=== PATIENT | male | born 1985 | race Caucasian/White ===

== ENCOUNTER 2025-04-24 14:59 | Emergency (ER) | payer MEDICAID, SELFPAY ==
[2025-04-24] VITALS (45 sets, daily range): BP systolic 87–143; BP diastolic 33–69; PULSE 93–125; RESP 9–27; TEMP 36.6–37.1; O2SAT 73–98
--- NOTE | 2025-04-24 15:15 | RT.EKG_ITS ---
APPROVED REPORT Exam: Resting ECG Reason for Exam: sob Patient Location: E HR:114 bpm ECG Measurements Heart Rate 114 AXIS MT 145 P 53 QRSd 92 QRS 64 QT 367 T 41 QTc 507 Conclusion Sinus tachycardia...rate> 99 Prolonged QT interval...QTc >500mS No STEMI
--- NOTE | 2025-04-24 15:30 | DI.CT_ITS ---
Exam(s) CT CHEST PE CTA EXAM: CT CHEST PE CTA CLINICAL HISTORY: dyspnea, tachycardia, hypoxia. TECHNIQUE: Imaging Protocol: CT angiography of the chest was performed using pulmonary embolus protocol. Multi planar reconstructions were performed. CONTRAST MATERIAL: Intravenous: Omnipaque 350 Contrast volume: 100 cc COMPARISON: No exams were available for comparison FINDINGS: CHEST: PULMONARY ARTERIES: Significantly less than optimal opacification of the noncentral pulmonary arteries. However, there is a suggestion of intraluminal filling defects in the left lower lobe pulmonary arteries and possibly also involving left upper lobe. His. LUNGS: There are no infiltrates nor evidence of pulmonary infarction.. No ominous pulmonary nodules. No pleural effusions. No significant focal findings in the trachea and mainstem bronchi. MEDIASTINUM: There is no hilar nor mediastinal adenopathy. CARDIAC: Heart size is upper normal. There is no pericardial effusion.Caliber of the thoracic aorta is within normal limits. No evidence of aortic dissection. Ventricular ratio is approximately 1:1 PARTIALLY VISUALIZED UPPERMOST ABDOMEN: There is a large amount of ascites. Hepatic steatosis noted. Multiple gallstones. Splenomegaly. No adrenal masses. OSSEOUS: No significant osseous lesions.Slight loss of height of superior endplate of the T6 and Schmorl's node invagination at this level. Probably not acute similar findings also seen at superior endplate of the partially included T12 vertebral body.. OTHER: Prominent bilateral gynecomastia noted. IMPRESSION: 1. Suboptimal opacification of the pulmonary arteries.However, there is subtle suggestion of intraluminal filling defects in left lower left upper lobe pulmonary arteries which is concerning for pulmonary emboli. Correlation with clinical setting recommended. 2. No evidence of infiltrates, pulmonary infarction, intrathoracic adenopathy nor pleural effusions. 3. No evidence of aortic dissection nor pericardial effusion. 4. There is a large amount of ascites in the abdomen incidentally noted as well as severe hepatic steatosis and splenomegaly. There also multiple gallstones noted in the gallbladder lumen. Report called by myself to ER physician 04/24/2025 at 6:50 p.m. RADIATION DOSE DELIVERED: 248.51mGy.cm Total DLP DATA REPOSITORY: All CT scans at this facility are submitted to the National Radiology Data Registry (NRDR) Dose Index Registry (DIR) with the [employer] (A[employer]). RADIATION OPTIMIZATION: All CT scans at this facility use at least one of these dose optimization techniques: automated exposure control; mA and/or kV adjustment per patient size (includes targeted exams where dose is matched to clinical indication); or iterative reconstruction.
--- NOTE | 2025-04-24 15:50 | DI.RAD_ITS ---
Exam(s) XR PORTABLE CHEST AP EXAM: XR PORTABLE CHEST AP CLINICAL HISTORY: SOB. TECHNIQUE: 2D digital imaging was performed. COMPARISON: No exams were available for comparison FINDINGS: Single AP portable view. Heart size is upper normal. The mediastinum is not widened. Lungs are clear. No infiltrates nor obvious pleural effusions. IMPRESSION: No acute pulmonary findings on this single AP portable view of the chest. DATA REPOSITORY: RADIATION DOSE DELIVERED:
[2025-04-24 16:13] LABS: BE (Venous) 7 mmol/L (-2-3); HCO3 (Venous) 30 mmol/L (23-28); O2 Sat (Venous) 81 %; TCO2 (Venous) 29 mmol/L (24-29); pCO2 (Venous) 39 mmHg (41-51); pO2 (Venous) 47 mmHg
[2025-04-24 16:17] LABS: Abs Immature Grans 0.01 10^3/uL (0.0-0.06); HCT 21.3 % (40.0-50.0); Immature Grans % 0.2 %; MCH 28.6 pg (27.0-33.0); MCHC 31.0 % (32.0-36.0); MCV 92 fL (80-95); MPV 12.0 fL (8.0-11.0); RBC 2.31 10^6/uL (4.36-5.78); RDW 18.6 % (11.8-14.1); RDW-SD 62.4 fL; WBC 4.67 10^3/uL (4.4-10.8)
[2025-04-24 16:31] LABS: Lipase 18 U/L (<53); Magnesium 1.5 mg/dL (1.6-2.6)
[2025-04-24 16:38] LABS: HGB 6.6 g/dL (13.5-17.5); Hypochromasia 2+; Platelet Count 75 10^3/uL (130-400)
[2025-04-24] MEDS: Furosemide 40 MG/4 ML VIAL IVP (16:38)
[2025-04-24] MEDS: Lactated Ringers 1,000 ML 1000 ML IV (16:39)
[2025-04-24 16:42] LABS: ALT 38 U/L (10-49); AST 56 U/L (<34); Albumin 1.7 g/dL (3.4-5.0); Alkaline Phosphatase 158 U/L (46-116); Anion Gap 7.8 mmol/L (3-11); BUN 7 mg/dL (9-23); Bilirubin, Total 10.20 mg/dL (0.2-1.2); CO2 27.3 mmol/L (20.0-31.0); Calcium 7.3 mg/dL (8.3-10.6); Chloride 93 mmol/L (98-107); Glucose 240 mg/dL (74-106); Potassium 3.7 mmol/L (3.5-5.1); Sodium 128 mmol/L (136-145); Total Protein 5.8 g/dL (5.7-8.2); Troponin I < 3 ng/L (<54)
[2025-04-24] MEDS: Normal Saline - Diluent 50 ML VIAL IJ (16:58)
[2025-04-24] MEDS: Normal Saline Flush 10 ML SYR IVP (16:58)
[2025-04-24] MEDS: Omnipaque 350 MG/ML 100 ML BTL IJ (16:59)
[2025-04-24 17:22] LABS: Glucose 100 mg/dL (Negative)
[2025-04-24 17:28] LABS: C & S Indicated? No
[2025-04-24 17:43] LABS: Troponin I < 3 ng/L (<54)
[2025-04-24 17:55] LABS: PTT Activated 53.2 sec (20.6-30.2)
[2025-04-24 18:00] LABS: INR > 9.8 (0.9-1.1)
[2025-04-24] MEDS: LORazepam 20 MG/10 ML VIAL IVP (18:07)
[2025-04-24] MEDS: Ondansetron 4 MG/2 ML VIAL IVP (18:07)
--- NOTE | 2025-04-24 18:24 | W.ED.GENAD ---
Discharge Plan Disposition Patient Disposition: Transfer-Acute Inpatient Care Specific Acute Inpt Facility: [facility] Discharge Details Clinical Impression: GI (gastrointestinal bleed), Decompensated cirrhosis, Alcohol withdrawal ED Provider: Mane Stafford Home Meds and New Rx's Prescriptions: No Action acamprosate 333 mg tablet,delayed release (DR/EC) 333 mg PO BID Rx Instructions: administer with mid-day and evening meals buprenorphine-naloxone 8-2 mg film 1 film sublingual DAILY folic acid 1 mg tablet 1 mg PO DAILY furosemide [Lasix] 20 mg tablet 20 mg PO DAILY magnesium oxide 400 mg magnesium capsule 400 mg PO DAILY pregabalin [Lyrica] 150 mg capsule 150 mg PO DAILY spironolactone [Aldactone] 100 mg tablet 100 mg PO DAILY venlafaxine 75 mg capsule,extended release 24hr 75 mg PO DAILY Discharge Instructions Instructions: Cirrhosis, Acute Liver Failure (DC), Alcohol Use Disorder ED HPI General Date/Time Provider Initiated Documentation: 04/24/25 15:09. HPI Narrative: MDM/Narrative: 40-year-old male with history of decompensated cirrhosis, presents for evaluation of dyspnea. Vital signs notable for tachycardia, hypoxia. Physical exam shows jaundice without significantly tense ascites, and mild alcohol withdrawal. Concern for possible acute on chronic liver failure. Will obtain screening labs including CBC, CMP, coags, EKG Trope. Will consider CTA of the chest to rule out pulmonary emboli if no other will significant findings. ED course: Patient is having active melena here in the department. INR is over 9.8. Hemoglobin of 6.6 will start blood products, and given patient's history on chart review portal hypertension and likely varices will start octreotide, Protonix and ceftriaxone. Patient will require higher level of care including gastroenterology/hepatology. [facility] transfer center paged. Case discussed with Dr. Jacinto of the ICU who recommends starting FFP, and is in agreement with transfer to [facility]. Given current census recommending ER to ER transfer. Case discussed with Dr. Cotter of the emergency department and is in agreement with plan for transfer to his care. Clinical impression: Acute on chronic cirrhosis Acute alcohol withdrawal Acute anemia GI bleed Disposition: Transferred to [facility] HPI: 40-year-old male presents for evaluation of difficulty breathing. Patient states that he is a [facility] liver patient and they moved in the area last week. Notes recurrent ascites for which he takes Lasix. Notes for the past week he has been having worsening difficulty breathing. Also notes some diarrhea with black stools today. Denies any active chest pain, fever, chills or any other new or concerning symptoms. ROS: Negative besides as mentioned above Exam: Gen: A&O NAD HEENT: NCAT, EOMI, icteric. External ears normal. No rhinorrhea. Moist mucous membranes. Neck: Supple, full range of motion, no observable masses, No meningeal sign. Lungs: No Respiratory distress. CV: RRR, no edema. Abdomen: Caput medusa, distended nontender not significantly tense. MSK: No joint swelling, no redness. Skin: No rashes, petechiae, lesions. Jaundice. Neuro: Normal Gait, Grossly intact. Psych: Appropriate for situation. Rhythm: NSR Rate: [] [place]: Normal axis Intervals: Normal intervals Other findings: No acute ST segment or T wave changes to suggest acute ischemia. Labs: Laboratory Tests Range/Units 04/24/25 04/24/25 04/24/25 16:05 17:00 17:05 WBC (4.4-10.8) 10^3/uL 4.67 RBC (4.36-5.78) 10^6/uL 2.31 L Hgb (13.5-17.5) g/dL 6.6 L* Hct (40.0-50.0) % 21.3 L MCV (80-95) fL 92 MCH (27.0-33.0) pg 28.6 MCHC (32.0-36.0) % 31.0 L RDW (11.8-14.1) % 18.6 H Plt Count (130-400) 10^3/uL 75 L MPV (8.0-11.0) fL 12.0 H Immature Gran % % 0.2 Neutrophils % % 59.1 Lymphocytes % % 14.8 Monocytes % % 25.3 Eosinophils % % 0.2 Basophils % % 0.4 Nucleated RBC % (0.0-0.3) % 0.0 Absolute Neutrophils (1.2-6.7) 10^3/uL 2.76 Absolute Lymphocytes (1.2-3.4) 10^3/uL 0.69 L Absolute Monocytes (0.1-0.8) 10^3/uL 1.18 H Absolute Eosinophils (0.0-0.7) 10^3/uL 0.01 Absolute Basophils (0.0-0.2) 10^3/uL 0.02 RBC Morphology See Below Hypochromasia 2+ PT Cancelled > 83.4 H INR Cancelled > 9.8 H* APTT Cancelled 53.2 H VBG pH (7.31-7.41) 7.51 H VBG pCO2 (41-51) mmHg 39 L VBG pO2 mmHg 47 VBG HCO3 (23-28) mmol/L 30 H VBG Total CO2 (24-29) mmol/L 29 VBG O2 Saturation % 81 VBG Base Excess (-2-3) mmol/L 7 H VBG Lactate (<or=2.0) mmol/L 4.8 H* Sodium (136-145) mmol/L 128 L Potassium (3.5-5.1) mmol/L 3.7 Chloride (98-107) mmol/L 93 L Carbon Dioxide (20.0-31.0) mmol/L 27.3 Anion Gap (3-11) mmol/L 7.8 BUN (9-23) mg/dL 7 L Creatinine (0.73-1.18) mg/dL 0.5 L Est GFR (CKD-EPI 2020) (mL/min/1.73m2) 202.67 Glucose (74-106) mg/dL 240 H Calcium (8.3-10.6) mg/dL 7.3 L Magnesium (1.6-2.6) mg/dL 1.5 L Total Bilirubin (0.2-1.2) mg/dL 10.20 H AST (<34) U/L 56 H ALT (10-49) U/L 38 Alkaline Phosphatase (46-116) U/L 158 H Troponin I (<54) ng/L < 3 < 3 NT-Pro-B Natriuret Pep (<300) pg/mL < 35 Total Protein (5.7-8.2) g/dL 5.8 Albumin (3.4-5.0) g/dL 1.7 L Lipase (<53) U/L 18 Urine Color (Yellow) Urine Clarity (Clear) Urine pH (5-8) Ur Specific [place] (1.005-1.025) Urine Protein (Neg-Trace) mg/dL Urine Ketones (Negative) mg/dL Urine Blood (Negative) Urine Nitrite (Negative) Urine Bilirubin (Negative) Urine Urobilinogen (Up to 0.2) mg/dL Ur Leukocyte Esterase (Negative) Urine RBC (0-2) HPF Urine WBC (0-5) HPF Ur Epithelial Cells (Negative) HPF Urine Crystals (Negative) HPF Urine Bacteria (Negative) HPF Urine Casts (Negative) LPF Urine Mucus (Negative) Ur Culture Indicated? Urine Glucose (Negative) mg/dL Ethyl Alcohol (<3) mg/dL 19.7 H ABO/Rh A Positive Blood Type Recheck A Positive Antibody Screen NEGATIVE Range/Units 04/24/25 17:11 WBC (4.4-10.8) 10^3/uL RBC (4.36-5.78) 10^6/uL Hgb (13.5-17.5) g/dL Hct (40.0-50.0) % MCV (80-95) fL MCH (27.0-33.0) pg MCHC (32.0-36.0) % RDW (11.8-14.1) % Plt Count (130-400) 10^3/uL MPV (8.0-11.0) fL Immature Gran % % Neutrophils % % Lymphocytes % % Monocytes % % Eosinophils % % Basophils % % Nucleated RBC % (0.0-0.3) % Absolute Neutrophils (1.2-6.7) 10^3/uL Absolute Lymphocytes (1.2-3.4) 10^3/uL Absolute Monocytes (0.1-0.8) 10^3/uL Absolute Eosinophils (0.0-0.7) 10^3/uL Absolute Basophils (0.0-0.2) 10^3/uL RBC Morphology Hypochromasia PT INR APTT VBG pH (7.31-7.41) VBG pCO2 (41-51) mmHg VBG pO2 mmHg VBG HCO3 (23-28) mmol/L VBG Total CO2 (24-29) mmol/L VBG O2 Saturation % VBG Base Excess (-2-3) mmol/L VBG Lactate (<or=2.0) mmol/L Sodium (136-145) mmol/L Potassium (3.5-5.1) mmol/L Chloride (98-107) mmol/L Carbon Dioxide (20.0-31.0) mmol/L Anion Gap (3-11) mmol/L BUN (9-23) mg/dL Creatinine (0.73-1.18) mg/dL Est GFR (CKD-EPI 2020) (mL/min/1.73m2) Glucose (74-106) mg/dL Calcium (8.3-10.6) mg/dL Magnesium (1.6-2.6) mg/dL Total Bilirubin (0.2-1.2) mg/dL AST (<34) U/L ALT (10-49) U/L Alkaline Phosphatase (46-116) U/L Troponin I (<54) ng/L NT-Pro-B Natriuret Pep (<300) pg/mL Total Protein (5.7-8.2) g/dL Albumin (3.4-5.0) g/dL Lipase (<53) U/L Urine Color (Yellow) Dark Yellow Urine Clarity (Clear) Clear Urine pH (5-8) 5.5 Ur Specific [place] (1.005-1.025) >= 1.030 H Urine Protein (Neg-Trace) mg/dL 30 H Urine Ketones (Negative) mg/dL 15 H Urine Blood (Negative) Negative Urine Nitrite (Negative) Negative Urine Bilirubin (Negative) Large H Urine Urobilinogen (Up to 0.2) mg/dL 1.0 H Ur Leukocyte Esterase (Negative) Negative Urine RBC (0-2) HPF 3-5 H Urine WBC (0-5) HPF 3-5 Ur Epithelial Cells (Negative) HPF Many Urine Crystals (Negative) HPF Negative Urine Bacteria (Negative) HPF Many Urine Casts (Negative) LPF Negative Urine Mucus (Negative) Heavy Ur Culture Indicated? No Urine Glucose (Negative) mg/dL 100 H Ethyl Alcohol (<3) mg/dL ABO/Rh Blood Type Recheck Antibody Screen Radiology: Exam(s) XR PORTABLE CHEST AP EXAM: XR PORTABLE CHEST AP CLINICAL HISTORY: SOB. TECHNIQUE: 2D digital imaging was performed. COMPARISON: No exams were available for comparison FINDINGS: Single AP portable view. Heart size is upper normal. The mediastinum is not widened. Lungs are clear. No infiltrates nor obvious pleural effusions. IMPRESSION: No acute pulmonary findings on this single AP portable view of the chest. Related Data Home Medications Medication Instructions Recorded Confirmed acamprosate 333 mg tablet,delayed 333 mg PO BID 04/24/25 04/24/25 release buprenorphine 8 mg-naloxone 2 mg 1 film sublingual DAILY 04/24/25 04/24/25 sublingual film folic acid 1 mg tablet 1 mg PO DAILY 04/24/25 04/24/25 furosemide 20 mg tablet (Lasix) 20 mg PO DAILY 04/24/25 04/24/25 magnesium oxide 400 mg PO DAILY 04/24/25 04/24/25 pregabalin 150 mg capsule (Lyrica) 150 mg PO DAILY 04/24/25 04/24/25 spironolactone 100 mg tablet 100 mg PO DAILY 04/24/25 04/24/25 (Aldactone) venlafaxine 75 mg capsule,extended 75 mg PO DAILY 04/24/25 04/24/25 release 24 hr Allergies Allergy/AdvReac Type Severity Reaction Status Date / Time morphine AdvReac Unknown Verified 04/24/25 15:15 General Stated Complaint: Abd Prob [place]: 3 Course Vital Signs Vital signs: Vital Signs Temperature 36.6 C 04/24/25 15:08 Pulse 125 H 04/24/25 15:08 Respiratory Rate 20 04/24/25 15:08 Blood Pressure 108/69 04/24/25 15:08 Pulse Oximetry 91 L 04/24/25 15:08 Temperature 36.6 C 04/24/25 15:23 Temperature Source Tympanic 04/24/25 15:23 Pulse 115 H 04/24/25 17:45 Pulse 114 H 04/24/25 17:45 Respiratory Rate 16 04/24/25 17:45 Respiratory Pattern Normal 04/24/25 18:03 Blood Pressure 125/51 L 04/24/25 17:45 Blood Pressure Mean 72 04/24/25 17:45 Pulse Oximetry 97 04/24/25 17:45 Oxygen Delivery Method Room Air 04/24/25 15:23 Pain Level 6 04/24/25 15:23 Lab/Test Results Lab/Test Results: Laboratory Tests Range/Units 04/24/25 04/24/25 04/24/25 16:05 17:00 17:05 WBC (4.4-10.8) 10^3/uL 4.67 RBC (4.36-5.78) 10^6/uL 2.31 L Hgb (13.5-17.5) g/dL 6.6 L* Hct (40.0-50.0) % 21.3 L MCV (80-95) fL 92 MCH (27.0-33.0) pg 28.6 MCHC (32.0-36.0) % 31.0 L RDW (11.8-14.1) % 18.6 H Plt Count (130-400) 10^3/uL 75 L MPV (8.0-11.0) fL 12.0 H Immature Gran % % 0.2 Neutrophils % % 59.1 Lymphocytes % % 14.8 Monocytes % % 25.3 Eosinophils % % 0.2 Basophils % % 0.4 Nucleated RBC % (0.0-0.3) % 0.0 Absolute Neutrophils (1.2-6.7) 10^3/uL 2.76 Absolute Lymphocytes (1.2-3.4) 10^3/uL 0.69 L Absolute Monocytes (0.1-0.8) 10^3/uL 1.18 H Absolute Eosinophils (0.0-0.7) 10^3/uL 0.01 Absolute Basophils (0.0-0.2) 10^3/uL 0.02 RBC Morphology See Below Hypochromasia 2+ PT Cancelled > 83.4 H INR Cancelled > 9.8 H* APTT Cancelled 53.2 H VBG pH (7.31-7.41) 7.51 H VBG pCO2 (41-51) mmHg 39 L VBG pO2 mmHg 47 VBG HCO3 (23-28) mmol/L 30 H VBG Total CO2 (24-29) mmol/L 29 VBG O2 Saturation % 81 VBG Base Excess (-2-3) mmol/L 7 H VBG Lactate (<or=2.0) mmol/L 4.8 H* Sodium (136-145) mmol/L 128 L Potassium (3.5-5.1) mmol/L 3.7 Chloride (98-107) mmol/L 93 L Carbon Dioxide (20.0-31.0) mmol/L 27.3 Anion Gap (3-11) mmol/L 7.8 BUN (9-23) mg/dL 7 L Creatinine (0.73-1.18) mg/dL 0.5 L Est GFR (CKD-EPI 2020) (mL/min/1.73m2) 202.67 Glucose (74-106) mg/dL 240 H Calcium (8.3-10.6) mg/dL 7.3 L Magnesium (1.6-2.6) mg/dL 1.5 L Total Bilirubin (0.2-1.2) mg/dL 10.20 H AST (<34) U/L 56 H ALT (10-49) U/L 38 Alkaline Phosphatase (46-116) U/L 158 H Troponin I (<54) ng/L < 3 < 3 NT-Pro-B Natriuret Pep (<300) pg/mL < 35 Total Protein (5.7-8.2) g/dL 5.8 Albumin (3.4-5.0) g/dL 1.7 L Lipase (<53) U/L 18 Urine Color (Yellow) Urine Clarity (Clear) Urine pH (5-8) Ur Specific [place] (1.005-1.025) Urine Protein (Neg-Trace) mg/dL Urine Ketones (Negative) mg/dL Urine Blood (Negative) Urine Nitrite (Negative) Urine Bilirubin (Negative) Urine Urobilinogen (Up to 0.2) mg/dL Ur Leukocyte Esterase (Negative) Urine RBC (0-2) HPF Urine WBC (0-5) HPF Ur Epithelial Cells (Negative) HPF Urine Crystals (Negative) HPF Urine Bacteria (Negative) HPF Urine Casts (Negative) LPF Urine Mucus (Negative) Ur Culture Indicated? Urine Glucose (Negative) mg/dL Ethyl Alcohol (<3) mg/dL 19.7 H ABO/Rh A Positive Blood Type Recheck A Positive Antibody Screen NEGATIVE Range/Units 04/24/25 17:11 WBC (4.4-10.8) 10^3/uL RBC (4.36-5.78) 10^6/uL Hgb (13.5-17.5) g/dL Hct (40.0-50.0) % MCV (80-95) fL MCH (27.0-33.0) pg MCHC (32.0-36.0) % RDW (11.8-14.1) % Plt Count (130-400) 10^3/uL MPV (8.0-11.0) fL Immature Gran % % Neutrophils % % Lymphocytes % % Monocytes % % Eosinophils % % Basophils % % Nucleated RBC % (0.0-0.3) % Absolute Neutrophils (1.2-6.7) 10^3/uL Absolute Lymphocytes (1.2-3.4) 10^3/uL Absolute Monocytes (0.1-0.8) 10^3/uL Absolute Eosinophils (0.0-0.7) 10^3/uL Absolute Basophils (0.0-0.2) 10^3/uL RBC Morphology Hypochromasia PT INR APTT VBG pH (7.31-7.41) VBG pCO2 (41-51) mmHg VBG pO2 mmHg VBG HCO3 (23-28) mmol/L VBG Total CO2 (24-29) mmol/L VBG O2 Saturation % VBG Base Excess (-2-3) mmol/L VBG Lactate (<or=2.0) mmol/L Sodium (136-145) mmol/L Potassium (3.5-5.1) mmol/L Chloride (98-107) mmol/L Carbon Dioxide (20.0-31.0) mmol/L Anion Gap (3-11) mmol/L BUN (9-23) mg/dL Creatinine (0.73-1.18) mg/dL Est GFR (CKD-EPI 2020) (mL/min/1.73m2) Glucose (74-106) mg/dL Calcium (8.3-10.6) mg/dL Magnesium (1.6-2.6) mg/dL Total Bilirubin (0.2-1.2) mg/dL AST (<34) U/L ALT (10-49) U/L Alkaline Phosphatase (46-116) U/L Troponin I (<54) ng/L NT-Pro-B Natriuret Pep (<300) pg/mL Total Protein (5.7-8.2) g/dL Albumin (3.4-5.0) g/dL Lipase (<53) U/L Urine Color (Yellow) Dark Yellow Urine Clarity (Clear) Clear Urine pH (5-8) 5.5 Ur Specific [place] (1.005-1.025) >= 1.030 H Urine Protein (Neg-Trace) mg/dL 30 H Urine Ketones (Negative) mg/dL 15 H Urine Blood (Negative) Negative Urine Nitrite (Negative) Negative Urine Bilirubin (Negative) Large H Urine Urobilinogen (Up to 0.2) mg/dL 1.0 H Ur Leukocyte Esterase (Negative) Negative Urine RBC (0-2) HPF 3-5 H Urine WBC (0-5) HPF 3-5 Ur Epithelial Cells (Negative) HPF Many Urine Crystals (Negative) HPF Negative Urine Bacteria (Negative) HPF Many Urine Casts (Negative) LPF Negative Urine Mucus (Negative) Heavy Ur Culture Indicated? No Urine Glucose (Negative) mg/dL 100 H Ethyl Alcohol (<3) mg/dL ABO/Rh Blood Type Recheck Antibody Screen Critical Care Time Critical Care Time Attestation: Upon my evaluation, this patient had a high probability of imminent or life-threatening deterioration due to GI bleed, decompensated cirrhosis, acute alcohol withdrawal, which required my direct attention, intervention, and personal management. I have personally provided 45 minutes of critical care time exclusive of time spent on separately billable procedures. Time includes review of laboratory data, radiology results, discussion with consultants, and monitoring for potential decompensation. Interventions were performed as documented above, including monitoring of critical vital signs, ordering critical medications from bedside, and re-assessing effectiveness, repeating critical exam findings, and reviewing patients' chart. PFSH All Active Problems (Updated 04/24/25 @ 18:34 by Mane Stafford MD) Alcohol withdrawal (Acute) Decompensated cirrhosis (Acute) GI (gastrointestinal bleed) (Chronic) Social History Smoking/Tobacco Use Status: Current every day Tobacco Type: e-cigarettes Smoking risk assessment performed?: Yes Alcohol Intake: current Alcohol Intake frequency: 0-2 drinks per day Drug use: Current Sobriety Substance use type: marijuana Housing: house Do you feel safe at home: Yes Do you feel safe in your relationship?: Yes POCUS Exam (ED) Limited Cardiac Exam DATE OF EXAM: 04/24/25 TIME OF EXAM: 15:19 PROVIDER THAT PERFORMED THE STUDY: Mane Stafford IS THIS A REPEAT EXAM DURING THIS ENCOUNTER: no REASON FOR EXAM: Dyspnea VISUALIZED STRUCTURES: Four Chambers, Left atrium, Left ventricle, LVOT, Right atrium, Right ventricle, Aortic valve, Mitral valve and Interventricular septum VIEW OBTAINED: Apical 4-Chamber, Parasternal long-axis, Parasternal short-axis and Subxiphoid PERTINENT FINDINGS/IMPRESSION: Other (B-lines on left lung field); No LV dysfunction, No pericardial effusion and No RV dysfunction Exam complete
[2025-04-24] MEDS: cefTRIAXone 1 GM/50 ML BAG IVPB (18:46)
[2025-04-24] MEDS: Pantoprazole 40 MG VIAL 80 MG IVP (18:47)
[2025-04-24] MEDS: Octreotide 100 MCG/ML VIAL 50 MCG IVP (18:47)
[2025-04-24] MEDS: PHYTONADIONE 10 MG in Normal Saline 50 ML 200 MG IVPB (19:42)
[2025-04-24] MEDS: Norepinephrine in D5W 8 MG/250 ML BAG 9.4 MG IV (20:04)
--- NOTE | 2025-04-24 20:49 | NUR.NOTE ---
Attempted calling [facility] ED at this time without success. Phone rang without answering
== END 2025-04-24 20:50 | disposition short-term general hospital (02) ==
PROVIDERS: Emergency Provider General Practice; PCP Physician Assistant
DX: K92.2 Gastrointestinal hemorrhage, unspecified (principal); K72.90 Hepatic failure, unspecified without coma; K74.69 Other cirrhosis of liver; F10.939 Alcohol use, unspecified with withdrawal, unspecified
CPT/HCPCS: 36415; 71275; 80053; 82805; 83690; 86850; 86900; 86901; 86920; 93005; 93308; 96365; 96366; 96367; 96375; 99291; 71045; 80320; 81003; 81015; 83605; 83735; 83880; 84484; 85025; 85610; 85730; 93010; J0696; J1938; J2060; J2354; J2405; J2470; J3430; J3490; P9016; P9059

== ENCOUNTER 2025-05-06 01:14 | Inpatient (IN) | payer MEDICAID, SELFPAY ==
[2025-05-05 23:31] VITALS: PULSE 100; O2SAT 98
[2025-05-05 23:43] VITALS: BP 107/64; PULSE 95; RESP 21; O2SAT 99
[2025-05-05 23:46] VITALS: BP 119/64; PULSE 95; PULSE 96; RESP 17; O2SAT 100
[2025-05-06] VITALS (36 sets, daily range): BP systolic 93–124; BP diastolic 49–70; PULSE 73–103; RESP 9–23; TEMP 36.6–37; O2SAT 92–99
--- NOTE | 2025-05-06 00:53 | W.PM.HP.N ---
Date of service: 05/06/25 Time of Service: 00:53 Assessment and Plan Assessment and plan (1) Hepatic failure due to alcoholism: Start date: 04/24/25 Status: Acute Assessment and plan: This is a 40-year-old gentleman being transferred from [facility] for continued IV Lasix and oral high dose spironolactone with metolazone for diuresis having anasarca and increased ascites with hepatic encephalopathy and alcohol withdrawal upon transfer to [facility] initially 04/24/2025. He also was in shock and required norepinephrine infusion. He had a full evaluation at [facility] including paracentesis of 5 L which patient does not remember having, intubation at 1 time with a EGD to evaluate his GI bleed requiring aggressive blood and pressure was applied as a replacement as well as alcohol withdrawal which is resolved and hepatic encephalopathy which has improved on lactulose. He is being transferred for continued IV diuresis been assessed as being 30 L overloaded with fluid. He is morbidly obese and his edema appears to be less severe than description by [facility]. He has recently continued alcohol increase with beer and is having motivated to stop drinking to where he can be on the liver transplant list. He is in stage IV liver failure. He has engaged with hepatology. He was admitted to the ICU for closer monitoring as we aggressively diurese and observe for complications of his multiple system failure. Will be on Protonix daily for his ulcers and watch closely for recurrent GI bleed with his PT/INR elevated with liver failure. He is a full code. (2) Hyponatremia: Start date: 05/06/25 Status: Acute Assessment and plan: This is a consequence of his recent advanced and aggressive diuresis. Monitor labs daily. He is asymptomatic with sodium being at 120. (3) Portal hypertension: Start date: 04/24/25 Status: Acute Assessment and plan: Watch for continued GI bleeding continue nadolol. Patient did not have esophageal varices. (4) Hepatic encephalopathy: Start date: 04/24/25 Status: Acute Assessment and plan: Acutely exacerbated now stabilizing on high-dose lactulose daily. (5) Alcoholic cirrhosis: Status: Chronic Assessment and plan: Patient is on the liver transplant list and this is associated with his continued alcohol use. (6) Anemia due to gastrointestinal blood loss: Start date: 04/24/25 Status: Acute Assessment and plan: This appears to have stabilized with transfusions and patient needs to continue on Protonix daily, follow-up PT/INR daily and watch for recurrent bleed. (7) Chronic alcoholism in remission: Status: Chronic Assessment and plan: Patient needs outpatient treatment for alcoholism and should completely stop drinking hopefully to be a candidate for liver transplant. He appears to have chronic opioid abuse syndrome as well and is on Suboxone which has been maintained and will be continued at same dose. (8) Type 2 diabetes mellitus: Status: Chronic Assessment and plan: Restart Lantus as patient diet is improved use and moderate sliding scale to cover glucometers before meals and at bedtime. History of Present Illness History of Present Illness Chief Complaint: Transferred from [facility] with hepatic failure and anasarca Narrative: This is a 40-year-old gentleman who was seen in the ED at [facility] 04/24/2025 and transferred to [facility] for decompensated stage IV hepatic failure with anasarca, hypotension requiring blood pressure support with norepinephrine and hypoxemia and confusion with hepatic encephalopathy. The patient was initially admitted to the ICU and had EGD status post intubation for airway protection which revealed bleeding ulcers with patient requiring several units of packed red blood cells. He also received fresh frozen plasma. This stabilized and his blood pressure labile patient extubated. He was transferred to the medical floor and reports states that he had a paracentesis with 5 L of fluid removed but the patient does not remember and thinks that he did not have this procedure. He was aggressively diuresed. He did receive a 7-day course of ceftriaxone. He was diagnosed with portal hypertension without esophageal varices. His anasarca was aggressively treated with diuresis the patient persists with scrotal edema which is uncomfortable. He does have a history of alcohol abuse having quit about a year prior to this presentation but increasing his drinking of beer given May 2025 which escalated just prior to this admission. He was having alcohol withdrawal and hepatic encephalopathy upon presentation and this is cleared. He continued to be icteric but is eating and drinking. He was transferred to this facility for continued IV diuresis and close monitoring of his labs. Long-term he will be a liver transplant candidate if he cannot be on alcohol. He is highly motivated. He is on buprenorphine which was continued. He is chronically on nadolol which will be continued. He was admitted to our ICU for closer monitoring as we aggressively diurese and watch for decompensation. He appears to be slightly confused about the events though he thinks that he remembers most of what happened. He is eating and drinking. When he presented to the ED initially 04/24/2025 he was in shock and this has cleared with his nadolol to be restarted watch his blood pressure closely in the ICU. He is a previous smoker and would like Nicorette gum which will be given. He also has intermittent nausea which responds to Zofran. He does have a partner locally which who is supportive and this should be helpful. He is chronically on lactulose for his encephalopathy and this will be continued. He will need physical therapy and advancing activity before being discharged. He also need to be converted to oral diuretic therapy before discharge. He is a full code. Review of Systems Narrative: 13 point review of systems otherwise unrevealing or stable. PFSH All Active Problems (Updated 05/06/25 @ 01:12 by Julian Quispe) Hepatic encephalopathy (Acute) Type 2 diabetes mellitus (Chronic) Hyponatremia (Acute) Chronic alcoholism in remission (Chronic) Portal hypertension (Acute) Alcoholic cirrhosis (Chronic) Anemia due to gastrointestinal blood loss (Acute) Hepatic failure due to alcoholism (Acute) Alcohol withdrawal (Acute) Decompensated cirrhosis (Acute) GI (gastrointestinal bleed) (Chronic) Social History Smoking/Tobacco Use Status: Current every day Tobacco Type: e-cigarettes Tobacco: How many years used: 24 Smoking risk assessment performed?: Yes Alcohol Intake: current Alcohol Intake frequency: 3 or more drinks per day Alcohol type: beer and hard liquor Drug use: Current Sobriety Substance use type: marijuana Housing: house Do you feel safe at home: Yes Do you feel safe in your relationship?: Yes Meds Allergies and Home Medications Allergies Allergy/AdvReac Type Severity Reaction Status Date / Time morphine AdvReac Unknown Verified 04/24/25 15:15 Home Medications ?Medication ?Instructions ?Recorded ?Confirmed ?Type acamprosate 333 mg tablet,delayed 333 mg PO BID 04/24/25 05/06/25 History release buprenorphine 8 mg-naloxone 2 mg 2 film sublingual DAILY 04/24/25 05/06/25 History sublingual film folic acid 1 mg tablet 1 mg PO DAILY 04/24/25 05/06/25 History furosemide 20 mg tablet (Lasix) 60 mg PO DAILY 04/24/25 05/06/25 History magnesium oxide 400 mg PO DAILY 04/24/25 05/06/25 History spironolactone 100 mg tablet 100 mg PO DAILY 04/24/25 05/06/25 History (Aldactone) venlafaxine 75 mg capsule,extended 75 mg PO DAILY 04/24/25 05/06/25 History release 24 hr cholecalciferol (vitamin D3) 50 50 mcg PO DAILY 05/06/25 05/06/25 History mcg (2,000 unit) capsule cyanocobalamin (vitamin B-12) 1,000 mcg PO DAILY 05/06/25 05/06/25 History 1,000 mcg tablet hydroxyzine HCl 25 mg tablet 25 mg PO Q6H PRN anxiety 05/06/25 05/06/25 History insulin aspart U-100 100 unit/mL 1 sliding scale dose subcut QAC 05/06/25 05/06/25 History (3 mL) subcutaneous pen insulin aspart U-100 100 unit/mL 6 unit subcut QAC 05/06/25 05/06/25 History (3 mL) subcutaneous pen insulin glargine 100 unit/mL (3 20 unit subcut QPM 05/06/25 05/06/25 History mL) subcutaneous pen (Lantus Solostar U-100 Insulin) lactulose 10 gram/15 mL oral 45 ml PO TID 05/06/25 05/06/25 History solution nadolol 20 mg tablet 100 mg PO DAILY 05/06/25 05/06/25 History pregabalin 75 mg capsule (Lyrica) 75 mg PO BID 05/06/25 05/06/25 History ramelteon 8 mg tablet (Rozerem) 8 mg PO QHS PRN sleep 05/06/25 05/06/25 History spironolactone 50 mg tablet 50 mg PO TID 05/06/25 05/06/25 History thiamine HCl (vitamin B1) 100 mg 100 mg PO DAILY 05/06/25 05/06/25 History capsule Exam Narrative Exam Narrative: General: Patient appears appropriate for age, morbidly obese, alert and oriented to person, place and time. He is in no acute distress. HEENT: Normocephalic, eyes with pupils equal and reactive to light symmetrically, extraocular movement intact and sclera icteric. Oropharynx with dry mucosa and poor dentition with missing, discolored teeth. Neck: Supple without JVD. Back: Not examined with patient supine. Lungs: Fair aeration and clear to auscultation percussion. No expiratory wheeze no focalizing rales or rhonchi. Heart: Regular rate and rhythm with 4/6 systolic murmur left sternal border. No gallop or rub. Abdomen: Obese contour with large pannus. Difficult to assess for fluid wave. Reducible umbilical hernia. Soft to palpation with no guarding or rebound. Unable to palpate liver or spleen but exam difficult with obesity. Bowel sounds are positive but decreased in all quadrants. Genitalia/rectal: Full exam deferred. Patient does have circumcised penis but Cannon catheter in place and edematous scrotum with some skin breakdown and moisture over the posterior aspect of the scrotum which is tender with cleansing. Extremities: Nonpitting, hard edema lower extremities bilaterally with some circumferential atrophy and erythema over both legs but no open ulcers. Loss of hair. Fair capillary refill. Skin: Chronic skin changes lower extremities as mentioned, bruising over the left arm especially with no palpable induration or hematoma. Jaundice, warm and dry. Neuro: Cranial nerves II through XII gross intact, no focalizing motor deficits and no tremor. Psych: Flattened affect with depressed mood. No abnormal thought processes. Remote and recent memory grossly intact. Results Labs 05/06/25 05:35 05/06/25 05:35 Last Vital Signs Pulse 97 H 05/06/25 00:01 Resp 18 05/06/25 00:01 BP 111/67 05/06/25 00:01 Pulse Ox 98 05/06/25 00:01 VTE Prohylaxis Risk Level: Moderate/High Risk Contraindications: Medical contrainidcation Prophylaxis: Patient anticoagulated (With elevated PT/INR having liver failure.) and Mechanical Time Spent Time spent with Patient: >75 minutes Time was spent: preparing to see the patient(eg.review tests), obtaining and/or reviewing separately otained hiistory, ordering medications,tests, procedures, referring, communicating with other health customer care specialist, indepentently interpreting results, counseling the patient and care coordination
[2025-05-06 06:59] LABS: Magnesium 1.6 mg/dL (1.6-2.6)
[2025-05-06 07:06] LABS: ALT 38 U/L (10-49); AST 87 U/L (<34); Albumin 2.5 g/dL (3.2-5.0); Alkaline Phosphatase 126 U/L (46-116); Anion Gap 4.1 mmol/L (3-11); BUN 7 mg/dL (9-23); Bilirubin, Total 11.10 mg/dL (0.2-1.2); CO2 35.0 mmol/L (20.0-31.0); Calcium 8.8 mg/dL (8.3-10.6); Chloride 94 mmol/L (98-107); Glucose 122 mg/dL (74-106); Potassium 3.7 mmol/L (3.5-5.1); Sodium 133 mmol/L (136-145); Total Protein 5.6 g/dL (5.7-8.2)
[2025-05-06 07:10] LABS: HCT 22.1 % (40.0-50.0); MCH 29.6 pg (27.0-33.0); MCHC 32.6 % (32.0-36.0); MCV 91 fL (80-95); MPV 11.1 fL (8.0-11.0); RBC 2.43 10^6/uL (4.36-5.78); RDW-SD 67.7 fL; WBC 3.34 10^3/uL (4.4-10.8)
[2025-05-06 07:14] LABS: COVID-19 PCR Negative (Negative); RSV PCR Negative (Negative)
[2025-05-06 07:39] LABS: INR 2.7 (0.9-1.1)
[2025-05-06 07:40] LABS: Prothrombin Time 25.5 sec (9.1-11.1)
[2025-05-06 07:50] LABS: Platelet Count 49 10^3/uL (130-400)
[2025-05-06 07:51] LABS: HGB 7.2 g/dL (13.5-17.5); RDW 20.1 % (11.8-14.1)
--- NOTE | 2025-05-06 08:06 | INITIAL_ITS ---
Date of service: 05/06/25 Time of Service: 08:06 Care Management Initial Assmt Initial Assessment Reason for Hospitalization: GIB, cirrhosis, alcohol withdrawal Functional Status/Living Situation Patient Presentation: Peng was seen in the ED here at [facility] on 04/24 and was transferred to [facility] for decompensated stage IV hepatic failure with anasarca, hypotension requiring blood pressure support with norepinephrine and hypoxemia and confusion with hepatic encephalopathy. He required intubation, required several units of PRBC, and several paracentesis. Peng does not remember the procedures performed at [facility]. He was having alcohol withdrawal and encephalopathy, which has cleared. He was transferred back to [facility] on 05/05/25 for continued IV diuresis and close monitoring in the ICU. Tray was lying in bed when TOMMY met with him, his partner, Norman, was present as well. Both gentleman were very pleasant. Tray has just recently moved to the area and is living with Norman. He is not working, and receives only SSI. He has some financial strain and is very open to a referral to [employer], which was sent. He is also looking for meals on wheels, which may be available through [employer]. 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 Tray's biggest goal in life is to stay sober, and improve his health to the point where he will be able to receive a liver transplant. Tray is committed to his sobriety at this time. TOMMY offered the Manager Int[facility] Unit from [facility], but Tray declined this offer. He stated that he intends to attend in person AA meetings once he is discharged. Town of Residence: [place] Resides with: Other (roommate Norman Roman) Significant Other/Family: Local (mom- Norma) Caregiver/Guardian: Norman is very involved in Tray's care Natural Supports: momNorman Employment Status: Disabled Instrumental Activities of Daily Living (ADLs): Independent Medications Medication Management: No Issues/Barriers identified Advance Directives Advance Directives: Do you have an Advance Directive: AD On File at [facility]: N 04/24/25, 19:02 Date Asked 04/24/25 04/24/25, 19:02 AD Date Reviewed COLST On File at [facility] COLST Date Scanned Code Status Resuscitation Status Full Code Insurance Coverage/Financial Issues Insurance: Medicaid of [place] - [id number] Care Team Visit Care Team Role Provider Type Bernarddarrin Cecile Primary Care Provider NON-[facility] STAFF PHYSICIAN Norma Wilkinson RDN, [facility] Other Providers GARDENER FLORIST Tomas Corona RDN Other Providers GARDENER FLORIST Grover Dahl MD Admit Provider [facility] STAFF PHYSICIAN Attending Provider Discharge Potential Discharge Needs: PT Evaluation, PCP F/U Appt and Other (lean coach) Anticipated Barriers to Discharge: None Identified Patient/Family Education Needs: Review discharge instructions, discuss Ask Me Three Transportation: Private vehicle Plan: Tray will need to work with PT to gain some strength and mobility after this extended hospitalization. He will discharge home, likely without home care services, once he is medically clear. He will need to f/u with his PCP and it will be encouraged that he follow up with [facility]. Manager Intensive Care Unit will be offered today. CM will continue to follow. Social Determinants of Health Screening Social Determinants of health last assessed in clinic: 05/06/25 Will the Patient Participate in the Screening?: Yes Do you worry about having a steady place to live?: no Problems where you live: mold In the past 12 months, have you had to go without electric, gas, oil or water in your home?: no 1. Within the past 12 months, we worried whether our food would run out before we got money to buy more.: Don't know/refused 2. Within the past 12 months, the food we bought just didn't last and we didn't have money to get more.: Don't know/refused Has lack of transportation kept you from medical appointments or from doing things needed for daily living?: yes Has anyone in your life made you feel unsafe or unsupported?: no How hard is it for you to pay for the very basics like food, housing, medical care, and heating? Would you say it is:: Somewhat hard Do you want help finding or keeping work or a job?: I do not need or want help If for any reason you need help with day-to-day activities such as bathing, preparing meals, shopping, managing finances, etc., do you get the help you need?: I don?t need any help How often do you feel lonely or isolated from those around you?: Rarely Do you speak a language other than Korean at home?: No Does the patient want assistance with any of the above?: Yes Health Related Social Needs Health related social needs: inadequate housing (Z59.1), transportation insecurity (Z59.82), problems related to housing/economic circumstances (Z59.89) and feeling lonely/isolated (Z60.8) Health related social needs details: HE expressed a desire for help finding a navigating the available services in [place]. [facility] All Active Problems (Updated 05/06/25 @ 01:12 by Julian Quispe) Hepatic encephalopathy (Acute) Type 2 diabetes mellitus (Chronic) Hyponatremia (Acute) Chronic alcoholism in remission (Chronic) Portal hypertension (Acute) Alcoholic cirrhosis (Chronic) Anemia due to gastrointestinal blood loss (Acute) Hepatic failure due to alcoholism (Acute) Alcohol withdrawal (Acute) Decompensated cirrhosis (Acute) GI (gastrointestinal bleed) (Chronic) Social History Smoking/Tobacco Use Status: Current every day Tobacco Type: e-cigarettes Tobacco: How many years used: 24 Smoking risk assessment performed?: Yes Alcohol Intake: current Alcohol Intake frequency: 3 or more drinks per day Alcohol type: beer and hard liquor Drug use: Current Sobriety Substance use type: marijuana Housing: house Do you feel safe at home: Yes Do you feel safe in your relationship?: Yes Anticipated HH Services Anticipated HH Services at [facility] Needed, SALES ACCOUNT DIRECTOR, PT and RN.
[2025-05-06] MEDS: Furosemide 20 MG/2 ML VIAL 60 MG IVP (08:47)
[2025-05-06] MEDS: Lactulose 20 GM/30 ML CUP 30 GM PO ×3 (08:48→21:26)
[2025-05-06] MEDS: Acamprosate 333 MG TABCR PO (08:50)
[2025-05-06] MEDS: Magnesium Oxide 400 MG TAB PO (08:50)
[2025-05-06] MEDS: Venlafaxine 75 MG CAPCR PO (08:50)
[2025-05-06] MEDS: Thiamine 100 MG TAB PO (08:52)
[2025-05-06] MEDS: Cyanocobalamin 500 MCG TAB 1000 MCG PO (08:53)
[2025-05-06] MEDS: Nadolol 40 MG TAB 100 MG PO (08:54)
[2025-05-06] MEDS: metOLazone 2.5 MG TAB 5 MG PO (08:55)
[2025-05-06] MEDS: Folic Acid 1 MG TAB PO (08:57)
[2025-05-06] MEDS: Pantoprazole 40 MG TABCR PO (08:58)
[2025-05-06] MEDS: Spironolactone 50 MG TAB 150 MG PO (08:58)
[2025-05-06] MEDS: Normal Saline Flush 10 ML SYR IVP ×2 (08:59→21:28)
[2025-05-06] MEDS: Buprenorphine/Naloxone 8 mg/2 mg FILM 2 EACH SL (08:59)
[2025-05-06] MEDS: Insulin Aspart 300 UNITS/3 ML PEN SC (12:33)
--- NOTE | 2025-05-06 13:39 | TELEP.MEDR_ITS ---
Date of service: 05/06/25 Time of Service: 13:39 Telepharmacy Home Med Rec Allergies Allergies: morphine Adverse Reaction (Verified 04/24/25 15:15) Unknown Interview Person Interviewed: Updated medication list with inpatient pharmacy at [facility] Quality Quality of Interview/Accuracy of Medication List: Good Sources Sources used to compile medication list: MAR Changes made to Home Medication List: ADDITIONS: None DELETIONS: Campral Vitamin B12 Hydroxyzine Magnesium Nadolol Rozerem CHANGES: Spironolactone 150mg po daily (was 50mg tid and 100mg daily) Additional Notes Additional Notes: * Updated medication list with information from inpatient pharmacy at [facility]. Last doses were 05/05/25. Recommended Changes Recommended Changes(reason for recommendation): * None Attestation: The home medication list is now updated to the best of my knowledge and is ready to be reconciled by the provider. Please contact the TelePharmacy Medication Reconciliation Pharmacist at for any questions.
[2025-05-06 16:37] LABS: HCT 24.6 % (40.0-50.0); HGB 7.7 g/dL (13.5-17.5)
[2025-05-06 16:53] LABS: Ammonia 58 umol/L (11-32)
[2025-05-06] MEDS: Miconazole 2% Topical Powder 85 GM BTL (21:25)
[2025-05-06] MEDS: Insulin Glargine 300 UNITS/3 ML PEN 20 UNITS SC (21:28)
[2025-05-07] VITALS (14 sets, daily range): BP systolic 93–106; BP diastolic 54–60; PULSE 74–79; RESP 9–18; TEMP 36.5–37.2; O2SAT 94–100
[2025-05-07 06:10] LABS: HCT 22.7 % (40.0-50.0); HGB 7.4 g/dL (13.5-17.5); MCH 30.1 pg (27.0-33.0); MCHC 32.6 % (32.0-36.0); MCV 92 fL (80-95); MPV 11.1 fL (8.0-11.0); RBC 2.46 10^6/uL (4.36-5.78); RDW-SD 68.6 fL; WBC 4.52 10^3/uL (4.4-10.8)
[2025-05-07] MEDS: Normal Saline Flush 10 ML SYR IVP ×3 (06:10→20:16)
[2025-05-07 06:28] LABS: Platelet Count 59 10^3/uL (130-400)
[2025-05-07 06:29] LABS: RDW 20.2 % (11.8-14.1)
[2025-05-07 06:36] LABS: INR 2.6 (0.9-1.1)
[2025-05-07 06:43] LABS: ALT 38 U/L (10-49); AST 82 U/L (<34); Albumin 2.5 g/dL (3.2-5.0); Alkaline Phosphatase 146 U/L (46-116); Anion Gap 6.6 mmol/L (3-11); BUN 10 mg/dL (9-23); Bilirubin, Total 8.70 mg/dL (0.2-1.2); CO2 32.9 mmol/L (20.0-31.0); Calcium 8.6 mg/dL (8.3-10.6); Chloride 92 mmol/L (98-107); Glucose 133 mg/dL (74-106); Potassium 3.5 mmol/L (3.5-5.1); Sodium 132 mmol/L (136-145); Total Protein 5.6 g/dL (5.7-8.2)
[2025-05-07 06:44] LABS: Magnesium 1.7 mg/dL (1.6-2.6)
[2025-05-07 06:57] LABS: Prothrombin Time 24.8 sec (9.1-11.1)
[2025-05-07] MEDS: Lactulose 20 GM/30 ML CUP 30 GM PO ×2 (08:31→14:17)
[2025-05-07] MEDS: Nadolol 40 MG TAB 100 MG PO (08:31)
[2025-05-07] MEDS: Magnesium Oxide 400 MG TAB PO (08:32)
[2025-05-07] MEDS: Venlafaxine 75 MG CAPCR PO (08:32)
[2025-05-07] MEDS: Spironolactone 50 MG TAB 150 MG PO (08:32)
[2025-05-07] MEDS: Folic Acid 1 MG TAB PO (08:32)
[2025-05-07] MEDS: Thiamine 100 MG TAB PO (08:32)
[2025-05-07] MEDS: Cyanocobalamin 500 MCG TAB 1000 MCG PO (08:32)
[2025-05-07] MEDS: Buprenorphine/Naloxone 8 mg/2 mg FILM 2 EACH SL (08:33)
[2025-05-07] MEDS: Pantoprazole 40 MG TABCR PO (08:33)
[2025-05-07] MEDS: Furosemide 20 MG/2 ML VIAL 60 MG IVP (08:33)
--- NOTE | 2025-05-07 11:36 | PHA.REVIEW2 ---
Pharmacy Admission Review Admission Clinical Review Admission Pharmacy Review: Hepatic encephalopathy (Acute) Hyponatremia (Acute) Portal hypertension (Acute) Anemia due to gastrointestinal blood loss (Acute) Hepatic failure due to alcoholism (Acute) morphine Adverse Reaction (Verified 04/24/25 15:15) Unknown Resuscitation Status Full Code Height 5 ft 9 in Weight 113.1 kg Pharmacy Admission Review Renal Dosing Renal Dosing: BUN 10 mg/dL (9-23) 05/07/25 05:40 Creatinine 0.62 mg/dL (0.73-1.18) L 05/07/25 05:40 Medications needing adjustments: Reviewed (SCR=0.62; Crcl=>100; no intervention at this time) Anticoagulation Anticoagulation: Hgb 7.4 g/dL (13.5-17.5) L 05/07/25 05:40 Hct 22.7 % (40.0-50.0) L 05/07/25 05:40 Plt Count 59 10^3/uL (130-400) L 05/07/25 05:40 INR 2.6 (0.9-1.1) H 05/07/25 05:40 Creatinine 0.62 mg/dL (0.73-1.18) L 05/07/25 05:40 DVT Prophylaxis: Reviewed (INR=2.6 secondary to liver cirrhosis; SCD's ordered and pt is ambulating with assistance) Opiate Usage Evaluate Pain Scale/Pains Meds: N/A Relevant Labs Relevant Labs: Sodium 132 mmol/L (136-145) L 05/07/25 05:40 Potassium 3.5 mmol/L (3.5-5.1) 05/07/25 05:40 Chloride 92 mmol/L (98-107) L 05/07/25 05:40 Magnesium 1.7 mg/dL (1.6-2.6) 05/07/25 05:40 Electrolytes, C-Reactive P, ESR: Reviewed (no intervention at this time) DM Control DM Control: Reviewed ( am [id number]=199; continue to monitor inpatient-pt on home insulin aspart + glargine) Cardiac Review BP, HR, EF%: Reviewed (bp=95/57; hr=77 ) QTc Review QTc: Reviewed (qtc on 04/2562=001. currently not on any meds that prolong QTC. ) IV to PO Switch IV Medications: Reviewed (all meds po except IV lasix for which pt is here for aggressive diuresis. ) Home Meds Home Med List reviewed: Reviewed Relevent Home Meds Not ordered & why?: recommended to add vitamin D; recommended to d/c acamprosate, b12, and nadolol because pt was not receiving at [facility] prior to transfer here; recommended to change pregabalin dose to 75mg bid (from 300mg daily) per med rec dose Current Meds Current Medication Order Review: Reviewed Pharmacy Antibiotic Review Comments: no antibiotics at this time
[2025-05-07] MEDS: Insulin Aspart 300 UNITS/3 ML PEN SC (12:29)
[2025-05-07] MEDS: Nystatin POWDER 15 GM JAR TP ×3 (12:30→20:16)
--- NOTE | 2025-05-07 15:43 | CMPROGNOTE_ITS ---
Date of service: 05/07/25 Time of Service: 15:43 Care Management Progress Note Progress Note Text Progress Note Text: CM met with Tray and Norman briefly today. Both gentlemen were pleasant and in good spirits. CM supplied information and contacts for community services - [facility] (referral sent yesterday), [facility] for [facility] and other supports, [facility] - Tray will need rides to medical appointments, and [facility]. They were also notified that CM left a VM with CM at the [facility] to see if Tray qualifies for any services, and [facility] Both were very appreciative. Discharge Potential Discharge Needs: PT Evaluation and PCP F/U Appt Anticipated Barriers to Discharge: None Identified Patient/Family Education Needs: Review discharge instructions, discuss Ask Me Three Transportation: Private vehicle Plan: Anticipate that Tray will discharge home with new HH services of PT, RN and OBJECT ORIENTED DEVELOPER. He will f/u with his PCP and his specialists, and continue per his plan of care. He will transport home in a private vehicle with Austen. CM will continue to follow through discharge and update the plan as needed. Social Determinants of Health Screening Social Determinants of health last assessed in clinic: 05/07/25 Will the Patient Participate in the Screening?: Yes Do you worry about having a steady place to live?: no Problems where you live: mold In the past 12 months, have you had to go without electric, gas, oil or water in your home?: no 1. Within the past 12 months, we worried whether our food would run out before we got money to buy more.: Don't know/refused 2. Within the past 12 months, the food we bought just didn't last and we didn't have money to get more.: Don't know/refused Has lack of transportation kept you from medical appointments or from doing things needed for daily living?: yes Has anyone in your life made you feel unsafe or unsupported?: no How hard is it for you to pay for the very basics like food, housing, medical care, and heating? Would you say it is:: Somewhat hard Do you want help finding or keeping work or a job?: I do not need or want help If for any reason you need help with day-to-day activities such as bathing, preparing meals, shopping, managing finances, etc., do you get the help you need?: I don?t need any help How often do you feel lonely or isolated from those around you?: Rarely Do you speak a language other than Belarusian at home?: No Does the patient want assistance with any of the above?: Yes Health Related Social Needs Health related social needs: inadequate housing (Z59.1), transportation insecurity (Z59.82), problems related to housing/economic circumstances (Z59.89) and feeling lonely/isolated (Z60.8) Health related social needs details: HE expressed a desire for help finding a navigating the available services in [place].
--- NOTE | 2025-05-07 16:05 | PGE_ITS ---
Date of Service Date of service: 05/07/25 Time of Service: 08:00 Assessment and Plan Assessment and plan (1) Hepatic failure due to alcoholism: Start date: 04/24/25 Status: Acute Assessment and plan: Peng Ritchie is a 40 year old man initially presenting April 24 with shortness of breath, transferred to [facility] for liver failure. At [facility] he had EGD showing nonbleeding Nona Valenzuela tear, nonbleeding varices and nonbleeding erosions. After extubation he remained critically ill requiring multiple rounds of blood products. He was estimated to be 30 L overloaded and was aggressively diuresed. On transfer back to [facility] on May 06, he remains anasarcic to the axillae, with severely edematous scrotum. By hospital day 2, his limbs are substantially more mobile and his generalized anasarca has improved a great deal; his scrotum remains painfully edematous and impedes ambulation. He has arrangements to be seen by [facility] hepatology for liver transplant. He has social support in place. He is now 13 days sober and intends to re-engage with the community. Continue pantoprazole Monitor for blood loss Likely will need HH for RN, PT, SW (2) Hyponatremia: Start date: 05/06/25 Status: Acute Assessment and plan: This is a consequence of his recent advanced and aggressive diuresis. Monitor labs daily. He is asymptomatic with sodium being at 120. (3) Portal hypertension: Start date: 04/24/25 Status: Acute Assessment and plan: Watch for continued GI bleeding continue nadolol. (4) Hepatic encephalopathy: Start date: 04/24/25 Status: Acute Assessment and plan: Acutely exacerbated now stabilizing on high-dose lactulose daily. Ammonia here is 58. (5) Alcoholic cirrhosis: Status: Chronic Assessment and plan: Patient is on the liver transplant list and this is associated with his continued alcohol use. (6) Anemia due to gastrointestinal blood loss: Start date: 04/24/25 Status: Acute Assessment and plan: This appears to have stabilized with transfusions and patient needs to continue on Protonix daily, follow-up PT/INR daily and watch for recurrent bleed. (7) Chronic alcoholism in remission: Status: Chronic Assessment and plan: Patient needs outpatient treatment for alcoholism and should completely stop drinking hopefully to be a candidate for liver transplant. He appears to have chronic opioid abuse syndrome as well and is on Suboxone which has been maintained and will be continued at same dose. (8) Type 2 diabetes mellitus: Status: Chronic Assessment and plan: No previous diabetes diagnosis but he has had pancreatitis. At [facility] he was on 35u long-acting insulin, at 20u at time of transfer. BG 130-180 with total 4u correctional given thus far. Long-acting insulin is now stopped, to monitor correctional doses. Subjective Subjective Interval history since last seen: Mr. Ritchie is comfortable in bed. He is very happy with the reduction in size of his limbs with diuresis, however his scrotum remains painfully swollen. He reports that he has not been diagnosed with diabetes in the past. His partner Austen visited today. Exam Narrative Exam Narrative: General: This is a pleasant man in no distress. Mild jaundice HEENT: Normocephalic, atraumatic. Sclera icteric. Poor dentition. CV: RRR with systolic murmur Resp: CTAB Abd: soft, NTND : severely edematous scrotum, tender to palpation. Cannon in place. MSK: voluntary motion x4 Neuro: awake, alert. button inspector mild hallucinations which the patient reports are chronic and are from his dreams. His eyes close while he is listening; he reports this is also normal for him. Objective Last Vital Signs Temp 37.1 C 05/07/25 15:11 Pulse 78 05/07/25 15:11 Resp 16 05/07/25 15:11 BP 101/56 L 05/07/25 15:11 Pulse Ox 94 05/07/25 15:11 Laboratory Results - last 24 hr 05/06/25 05/07/25 16:25 05:40 WBC 4.52 RBC 2.46 L Hgb 7.7 L 7.4 L Hct 24.6 L 22.7 L MCV 92 MCH 30.1 MCHC 32.6 RDW 20.2 H Plt Count 59 L MPV 11.1 H PT 24.8 H INR 2.6 H Sodium 132 L Potassium 3.5 Chloride 92 L Carbon Dioxide 32.9 H Anion Gap 6.6 BUN 10 Creatinine 0.62 L Est GFR (CKD-EPI 2020) 143.59 Glucose 133 H Calcium 8.6 Magnesium 1.7 Total Bilirubin 8.70 H AST 82 H ALT 38 Alkaline Phosphatase 146 H Ammonia 58 H Total Protein 5.6 L Albumin 2.5 L PAWSS Have you Been Recently Intoxicated or Drunk Within the Last 30 days?: No Have you Ever Experienced Previous Episodes of Alcohol Withdrawal?: Yes Have you ever Experienced Withdrawal Seizures?: No Have you ever Experienced Delirium Tremens(DT)s?: Yes Have you ever undergone Alcohol Rehabilitation Treatment (i.e, inpt ot outpatient treatment programs)?: Yes Have you ever Experienced Blackouts?: Yes Have you ever Combined Alcohol with other Downers within the last 90 days?: No Have you ever Combined Alcohol with any other Substance of Abuse during the last 90 days?: No Positive Blood Alcohol level on Presentation? [PCS.BAL]: Yes Evidence of Increased Autonomic Activity (i.e. HR>120, tremor, sweating, agitation, nausea)?: No Result: 5 VTE Prohylaxis Risk Level: Moderate/High Risk Contraindications: Active bleed/high bleed risk Prophylaxis: Mechanical Time Spent with Patient Time Spent with Patient: 35-49 minutes Time was spent: preparing to see the patient(eg.review tests), obtaining and/or reviewing separately otained hiistory, ordering medications,tests, procedures, referring, communicating with other health personal care aid, indepentently interpreting results, counseling the patient and care coordination
--- NOTE | 2025-05-07 16:21 | W.PC.ACHO ---
Registration Status: ADM IN Primary Language: Preferred Language: Most Recent Vital Signs Temperature 37.1 C 05/07/25 15:11 Temperature Source Temporal Artery Scan 05/07/25 15:11 Pulse 78 05/07/25 15:11 Pulse 75 05/07/25 10:00 Respiratory Rate 16 05/07/25 15:11 Respiratory Effort Normal, Non-Labored 05/06/25 00:00 Respiratory Depth Normal 05/06/25 00:00 Respiratory Pattern Tachypnea 05/06/25 00:00 Blood Pressure 101/56 L 05/07/25 15:11 Blood Pressure Mean 71 05/07/25 15:11 Pulse Oximetry 94 05/07/25 15:11 Oxygen Delivery Method Room Air 05/07/25 15:11 Oxygen Flow Rate 0 05/07/25 15:11 Pain Level 0 05/07/25 15:04 Allergies morphine Adverse Reaction (Verified 04/24/25 15:15) Unknown Active Medications Generic Name Dose Route Start Last Admin Trade Name Freq PRN Reason Stop Dose Admin Buprenorphine/Naloxone 2 each 05/06/25 08:30 05/07/25 08:33 Buprenorphine/Naloxone 8 Mg/2 Mg Film SL 2 each DAILY SHANTHI Administration Cyanocobalamin 1,000 mcg 05/06/25 08:30 05/07/25 08:32 Cyanocobalamin 500 Mcg Tab PO 1,000 mcg DAILY SHANTHI Administration Folic Acid 1 mg 05/06/25 08:30 05/07/25 08:32 Folic Acid 1 Mg Tab PO 1 mg DAILY SHANTHI Administration Furosemide 60 mg 05/06/25 08:30 05/07/25 08:33 Furosemide 20 Mg/2 Ml Vial IVP 60 mg DAILY SHANTHI Administration Insulin Aspart 0 units 05/06/25 08:00 05/07/25 12:29 Insulin Aspart 300 Units/3 Ml Pen SC 4 units 0800,1200,1700,2200 SHANTHI Administration Protocol Lactulose 30 gm 05/06/25 08:30 05/07/25 14:17 Lactulose 20 Gm/30 Ml Cup PO 30 gm TID SHANTHI Administration Magnesium Oxide 400 mg 05/06/25 08:30 05/07/25 08:32 Magnesium Oxide 400 Mg Tab PO 400 mg DAILY SHANTHI Administration Metolazone 5 mg 05/06/25 08:30 05/07/25 09:31 Metolazone 2.5 Mg Tab PO Not Given DAILY SHANTHI Nadolol 100 mg 05/06/25 08:30 05/07/25 08:31 Nadolol 40 Mg Tab PO 100 mg DAILY SHANTHI Administration Nystatin 15 gm 05/06/25 16:10 05/07/25 15:27 Nystatin Powder 15 Gm Jar TP 1 applic TID SHANTHI Administration Pantoprazole Sodium 40 mg 05/06/25 07:30 05/07/25 08:33 Pantoprazole 40 Mg Tabcr PO 40 mg DAILY@0730 SHANTHI Administration Sodium Chloride 0 ml 05/06/25 01:14 05/07/25 06:10 Normal Saline Flush 10 Ml Syr IVP 40 ml PRN PRN Administration Sodium Chloride 0 ml 05/06/25 08:30 05/07/25 09:16 Normal Saline Flush 10 Ml Syr IVP 20 ml BID SHANTHI Administration Spironolactone 150 mg 05/06/25 08:30 05/07/25 08:32 Spironolactone 50 Mg Tab PO 150 mg DAILY SHANTHI Administration Thiamine HCl 100 mg 05/06/25 08:30 05/07/25 08:32 Thiamine 100 Mg Tab PO 100 mg DAILY SHANTHI Administration Venlafaxine HCl 75 mg 05/06/25 08:30 05/07/25 08:32 Venlafaxine 75 Mg Capcr PO 75 mg DAILY SHANTHI Administration IV IV Catheter Type [Left Midline Saline Lock ] Diagnostics 05/07/25 05/06/25 Range/Units 05:40 16:25 WBC 4.52 (4.4-10.8) 10^3/uL RBC 2.46 L (4.36-5.78) 10^6/uL Hgb 7.4 L 7.7 L (13.5-17.5) g/dL Hct 22.7 L 24.6 L (40.0-50.0) % MCV 92 (80-95) fL MCH 30.1 (27.0-33.0) pg MCHC 32.6 (32.0-36.0) % RDW 20.2 H (11.8-14.1) % Plt Count 59 L (130-400) 10^3/uL MPV 11.1 H (8.0-11.0) fL PT 24.8 H (9.1-11.1) sec INR 2.6 H (0.9-1.1) Sodium 132 L (136-145) mmol/L Potassium 3.5 (3.5-5.1) mmol/L Chloride 92 L (98-107) mmol/L Carbon Dioxide 32.9 H (20.0-31.0) mmol/L Anion Gap 6.6 (3-11) mmol/L BUN 10 (9-23) mg/dL Creatinine 0.62 L (0.73-1.18) mg/dL Est GFR (CKD-EPI 2020) 143.59 (mL/min/1.73m2) Glucose 133 H (74-106) mg/dL Calcium 8.6 (8.3-10.6) mg/dL Magnesium 1.7 (1.6-2.6) mg/dL Total Bilirubin 8.70 H (0.2-1.2) mg/dL AST 82 H (<34) U/L ALT 38 (10-49) U/L Alkaline Phosphatase 146 H (46-116) U/L Ammonia 58 H (11-32) umol/L Total Protein 5.6 L (5.7-8.2) g/dL Albumin 2.5 L (3.2-5.0) g/dL [id number] Documentation Fingerstick Glucose Start: 05/06/25 01:49 Freq: .ACHS Status: Active Protocol: Activity Type Activity Date Activity User E-sign Co-sign Detail Recorded Client Recorded Date Recorded By Document 05/07/25 12:26 BKG DAEMON(3) [id number] 05/07/25 12:28 BKG DAEMON(4) Intake and Output - 24 Hour Total 05/05/25 thru 05/07/25 15:04 Intake Total 2260 Output Total 8275 Balance -6015 Weight 113.1 kg Intake: Oral 2260 Output: Urine 8275 Other: Urine Color Light Krupa Urine Appearance Clear Stool Size Large Stool Characteristics Soft Falls Risk Assessment History of Falls No History 05/06/25 00:00 Contributing Factors Incontinence,Medications 05/06/25 00:00 Ambulatory Aids Uses ambulatory device + 05/06/25 00:00 Tubes/Lines With any additional score 05/06/25 00:00 Gait Evaluation W/any additional score 05/06/25 00:00 Cognition No cognitive impairment 05/06/25 00:00 Fall Total Score 76 05/06/25 00:00 Level of Risk Maximum Risk 05/06/25 00:00 Problems (Last Reviewed 05/06/25 @ 00:57 by Julian Quispe) Hepatic encephalopathy (Acute) Type 2 diabetes mellitus (Chronic) Hyponatremia (Acute) Chronic alcoholism in remission (Chronic) Portal hypertension (Acute) Alcoholic cirrhosis (Chronic) Anemia due to gastrointestinal blood loss (Acute) Hepatic failure due to alcoholism (Acute) Attestation Statement: By documenting the first initial, last name, and credentials of the reporting nurse below, both parties acknowledge that all relevant information regarding the patient handoff has been communicated, and that all questions have been addressed to ensure continuity and safety of care. Additional Patient Information/Comments: Report received at 1421, pt transferred to 206 on m/s. Report Received From: Armida Macdonald UNIT AIDE
[2025-05-08 03:12] VITALS: BP 95/60; PULSE 80; RESP 18; TEMP 36.8; O2SAT 97
[2025-05-08 07:28] VITALS: BP 104/57; PULSE 79; RESP 17; TEMP 36.5; O2SAT 99
[2025-05-08] MEDS: Normal Saline Flush 10 ML SYR IVP ×2 (08:08→09:46)
[2025-05-08 08:43] LABS: HCT 23.2 % (40.0-50.0); HGB 7.6 g/dL (13.5-17.5); MCH 30.3 pg (27.0-33.0); MCHC 32.8 % (32.0-36.0); MCV 92 fL (80-95); MPV 10.4 fL (8.0-11.0); RBC 2.51 10^6/uL (4.36-5.78); RDW 20.5 % (11.8-14.1); RDW-SD 70.0 fL; WBC 4.05 10^3/uL (4.4-10.8)
[2025-05-08 09:02] LABS: INR 2.5 (0.9-1.1); Prothrombin Time 23.4 sec (9.1-11.1)
[2025-05-08 09:09] LABS: Magnesium 1.6 mg/dL (1.6-2.6)
[2025-05-08 09:10] LABS: ALT 37 U/L (10-49); AST 82 U/L (<34); Albumin 2.4 g/dL (3.2-5.0); Alkaline Phosphatase 135 U/L (46-116); Anion Gap 5.7 mmol/L (3-11); BUN 10 mg/dL (9-23); Bilirubin, Total 7.30 mg/dL (0.2-1.2); CO2 32.6 mmol/L (20.0-31.0); Calcium 8.3 mg/dL (8.3-10.6); Chloride 94 mmol/L (98-107); Glucose 148 mg/dL (74-106); Potassium 3.4 mmol/L (3.5-5.1); Sodium 132 mmol/L (136-145); Total Protein 5.8 g/dL (5.7-8.2)
[2025-05-08 09:19] LABS: Platelet Count 63 10^3/uL (130-400)
[2025-05-08 09:41] VITALS: BP 112/62; PULSE 80; O2SAT 97
[2025-05-08] MEDS: Lactulose 20 GM/30 ML CUP 30 GM PO (09:46)
[2025-05-08] MEDS: Nadolol 40 MG TAB 100 MG PO (09:47)
[2025-05-08] MEDS: Pantoprazole 40 MG TABCR PO (09:47)
[2025-05-08] MEDS: Cyanocobalamin 500 MCG TAB 1000 MCG PO (09:47)
[2025-05-08] MEDS: Venlafaxine 75 MG CAPCR PO (09:47)
[2025-05-08] MEDS: Thiamine 100 MG TAB PO (09:47)
[2025-05-08] MEDS: Folic Acid 1 MG TAB PO (09:47)
[2025-05-08] MEDS: Magnesium Oxide 400 MG TAB PO (09:47)
[2025-05-08] MEDS: Pregabalin 25 MG CAP 75 MG PO (09:48)
[2025-05-08] MEDS: Buprenorphine/Naloxone 8 mg/2 mg FILM 2 EACH SL (09:48)
[2025-05-08] MEDS: Spironolactone 50 MG TAB 150 MG PO (09:48)
[2025-05-08] MEDS: Furosemide 20 MG/2 ML VIAL 60 MG IVP (10:35)
[2025-05-08] MEDS: metOLazone 2.5 MG TAB 5 MG PO (10:35)
--- NOTE | 2025-05-08 10:36 | IN_ITS ---
PT Notes Visit Reasons: Hepatic Failure with Anasarca,Hyponatremia,Portal Physical Therapy Inpatient Initial Evaluation Date: 05/08/2025 Referring Doctor:Stacey Dahl MD PT Orders: PT CONSULT: Eval and treat Precautions: Fall. Standard. Activity as tolerated. Cannon, Swollen & painful scrotum Patient Profile/Admitting Diagnosis: Pt is a 40 year old male admitted to the ED on 04/24/25 for liver failure, pt was transferred to [facility] on 04/24/25. Pt transferred back to [facility] 05/06/25. Pt was diagnosed with portal hyponatremia w/o esophageal varices. PMHX: Hepatic encephalopathy (Acute) Type 2 diabetes mellitus (Chronic) Hyponatremia (Acute) Chronic alcoholism in remission (Chronic) Portal hypertension (Acute) Alcoholic cirrhosis (Chronic) Anemia due to gastrointestinal blood loss (Acute) Hepatic failure due to alcoholism (Acute) Alcohol withdrawal (Acute) Decompensated cirrhosis (Acute) GI (gastrointestinal bleed) (Chronic) Social History/Home Situation: Pt lives in single family home with 5 [address] with a railing on the right side. Pt has everything he needs on one floor. Equipment Owned/DME: cane Subjective: Pt reported wanting to go home, and felt well. Pt reported he wanted to have the PT session prior to eating because he wanted to go home. Objective: General Observation: Physician leaving and pt just about to eat breakfast when PT arrived. Mental Status: Alert and oriented as to person, place, time, and purpose. Able to pay attention, focus, and respond appropriately. Pain: 7/10 in scrotum at peaks pain, but 3/10 at consistent rate Vital Signs: monitored by nursing Prior to ambulation: 93% SPO2 on RA ROM: Right Upper Extremity:?? Shoulder Flexion WFL. Shoulder abduction WFL. Elbow flexion WFL. Wrist flexion WFL. Functional opening and closing of hand WFL. Left Upper Extremity:? Shoulder Flexion WFL. Shoulder abduction WFL. Elbow flexion WFL. Wrist flexion WFL. Functional opening and closing of hand WFL. Right Lower Extremity: Hip flexion WFL. Hip abduction WFL. Knee flexion WFL. Ankle dorsiflexion WFL. Ankle plantarflexion WFL. Left Lower Extremity: Hip flexion WFL. Hip abduction WFL. Knee flexion WFL. Ankle dorsiflexion WFL. Ankle plantarflexion WFL. Strength: Right Upper Extremity: Grossly 4/5. Left Upper Extremity: Grossly 4/5 Right Lower Extremity: Grossly 4/5 Left Lower Extremity: Grossly 4/5 Bed Mobility/Transfers: Rolling Independent Supine to sit Independent Sit to supine Independent Sit to stand Independent Stand to sit Independent Gait: Instructed patient with level surface ambulation of 150 feet requiring supervision assist and single point cane. Smita reduced. Step height reduced. Step length reduced. Pt was unable to close his legs as per his swollen scrotum. Thus, patent walked with a varus gait. However, he was steady. Stairs: Pt performed 2 6inch steps and 3 4inch steps with a railing on both sides CGA. Pt performed stairs with a reciprocal step pattern. Balance: Static Sitting: normal Dynamic Sitting: normal Static Standing: normal Dynamic Standing: good w/1 UE support Special Tests: Mobility Limitations Standardized Measure [facility] AM-PAC 6 clicks Basic Mobility Inpatient Short Form: Raw Score: 24? CMS Score: 0% deficit? Informed Consent/Education:? Patient was instructed in purpose of PT consult and plan of care. Agreeable to proceed with established PT POC to achieve personal goals. Therapeutic activity: Ambulation: Pt ambulated 150 feet independently with a single point cane. PT provided verbal mild verbal cueing for direction and cane placement. Stairs: Pt performed 2 6inch steps and 3 4inch steps with a railing on one side CGA. Pt needed verbal cueing for performing a step to pattern with descending stairs. This decreased the level of discomfort. Assessment: Pt was able to ambulate a total of 300 feet with cane and perform the stairs twice. Pt needed mild verbal cueing with cane placement. Pt reported increase in discomfort with descending stairs. PT recommended a step to pattern. Pt was able to perform this pattern, and this decreased his level of discomfort. Pt has a good support system at home and was at his baseline with PT by the end of the session. Pt is discharged form PT as he is functionally independent. Patient presents with clinical signs and symptoms consistent with current/admitting diagnoses that have resulted to mobility limitations, gait instability, generalized weakness, and overall ADL decline as demonstrated by the following impairment level findings: 1.? Decreased strength to B LE major muscles 2.? Impaired standing balance 3.? Impaired activity tolerance 4.? Swelling/pain in scrotum Impairments are contributing to the following functional limitations: 1.? Difficulty with ambulation without assistive device and physical assistance 2.? Increased completion time for mobility ADL performance 3.? Increased risk for falls Despite limitation and deficits outline above pt is safe for discharge to home when medically appropriate Patient is assessed as a Low complexity based on the following: History: 40-year-old male with past medical history as indicated above Examination: Demonstrable impairment in strength, balance, and mobility level wi th underlying impairments and functional limitations as exhibited above. Presentation: stable but evolving Decision Making: low complexity Plan of Care/Treatment Plan: NA D/C to home after evaluation and 1 treat DISCHARGE RECOMMENDATIONS: Home with no services TREATMENT CODE/TIME: 76702,36035/8:45-9:10am Thank you for the opportunity to participate in the care of this patient. Written by: Pablo Grimaldo DPTS Supervised by: Carri Burt, PT [facility] [place], [place]
[2025-05-08] MEDS: Nystatin POWDER 15 GM JAR TP (11:02)
[2025-05-08 11:10] VITALS: BP 108/67; PULSE 73; RESP 16; TEMP 37.3; O2SAT 99
[2025-05-08] MEDS: Insulin Aspart 300 UNITS/3 ML PEN SC (12:28)
--- NOTE | 2025-05-08 13:03 | W.PM.DS.N ---
Date of service: 05/08/25 Time of Service: 13:03 DS: Diagnosis Discharge Diagnosis (1) Hepatic failure due to alcoholism: Status: Acute (2) Hyponatremia: Status: Acute (3) Portal hypertension: Status: Acute (4) Hepatic encephalopathy: Status: Acute (5) Alcoholic cirrhosis: Status: Chronic (6) Anemia due to gastrointestinal blood loss: Status: Acute (7) Chronic alcoholism in remission: Status: Chronic (8) Type 2 diabetes mellitus: Status: Chronic Discharge Plan Disposition Patient Disposition: Home W/Home Health Services Home Health Services: New Referral Condition: Improving Discharge Details Reason For Visit: Hepatic Failure with Anasarca,Hyponatremia,Portal Admit Date/Time: 05/06/25 01:14 Admit Provider: Grover Dahl Attending Provider: Julian Quispe Primary Care Provider: Suzan Huber Hospital Course Hospital Course: This is a 40-year-old gentleman who was initially seen in the ED at [facility] 04/24/2025 and transferred to [facility] for decompensated stage IV hepatic failure with anasarca, hypotension requiring blood pressure support with norepinephrine and hypoxemia and confusion with hepatic encephalopathy. He has a history of alcohol use disorder and had been drinking, though no heavily, prior to his admission. See the [facility] discharge summary. He was severely fluid overloaded and was transferred back to [facility] on 05/06 for continued IV diuresis with furosemide along with his spironolactone and new metolazone. By 05/08 he was feeling better and his fluid overload was much improved, though he still had significant scrotal edema. He requested discharge. Cannon catheter was removed and he was able to urinate without difficulty. He did have some redness around his scrotum and he was given nystatin. He felt confident in his recovery from alcohol use disorder. He understands the stakes of even moderate alcohol intake with his liver disease. He was told he may resume the acamprosate. Local recovery supports and meetings were discussed. His hemoglobin was stable in the 7s. He was continued on pantoprazole for now. His liver function while here was stable and improved from his initial admission with bilirubin at 7.3 and INR in the mid 2s. smoking cessation was encouraged, nicotene gum was used, which can be continued. His blood sugars were noted to be in the diabetic range while at [facility] and he was started on glargine and aspart insulin. A1c was not felt to be reliable with recent transfusion at [facility]. He has sugars here in the high 100s but his fasting sugar 05/07 was in the 80s so glargine was stopped. He met with Tomas from nutrition/DM education who set him up with a CGM. He was prescribed a Lantus pen to use in case his sugars are above 200 again. Recommendations for Follow Up Recommended tests to be ordered by follow up provider: CMP, CBC, Mg, iron/tibc 1 week. review blood sugars, consider hgb A1c or 2 hr glucose tolerance test Home Meds and New Rx's Prescriptions: New metolazone 2.5 mg Tablet 5 mg PO DAILY Qty: 30 0RF nicotine (polacrilex) 4 mg Gum 4 mg CH Q2H PRN PRNQty: 100 0RF pantoprazole 40 mg Tablet,Delayed Release (Dr/Ec) 40 mg PO DAILY@0730 Qty: 30 0RF nystatin [Nystop] 100,000 unit/gram Powder 1 applic topical TID Qty: 60 1RF Continued lactulose 10 gram/15 mL solution 45 ml PO TID pregabalin [Lyrica] 75 mg capsule 75 mg PO BID cyanocobalamin (vitamin B-12) 1,000 mcg tablet 1,000 mcg PO DAILY nadolol 20 mg tablet 100 mg PO DAILY hydroxyzine HCl 25 mg tablet 25 mg PO Q6H PRN (Reason: anxiety) spironolactone 50 mg tablet 50 mg PO DAILY Rx Instructions: 150mg total daily dose ramelteon [Rozerem] 8 mg tablet 8 mg PO QHS PRN (Reason: sleep) cholecalciferol (vitamin D3) 50 mcg (2,000 unit) capsule 50 mcg PO DAILY thiamine HCl (vitamin B1) 100 mg capsule 100 mg PO DAILY acamprosate 333 mg tablet,delayed release (DR/EC) 333 mg PO BID Rx Instructions: administer with mid-day and evening meals buprenorphine-naloxone 8-2 mg film 2 film sublingual DAILY folic acid 1 mg tablet 1 mg PO DAILY furosemide [Lasix] 20 mg tablet 60 mg PO DAILY magnesium oxide 400 mg magnesium capsule 400 mg PO DAILY spironolactone [Aldactone] 100 mg tablet 100 mg PO DAILY Rx Instructions: 150mg total daily dose venlafaxine 75 mg capsule,extended release 24hr 75 mg PO DAILY Changed insulin glargine [Lantus Solostar U-100 Insulin] 100 unit/mL (3 mL) insulin pen 10 unit subcut QPM Qty: 3 0RF Rx Instructions: use if blood sugars are above 200 and fasting morning sugars are above 120. If fasting morning sugar above 140 for three days, increase dose by 2 units. If fasting morning sugar less than 85, decrease the dose by 2 units Discontinued insulin aspart U-100 100 unit/mL (3 mL) insulin pen 6 unit subcut QAC insulin aspart U-100 100 unit/mL (3 mL) insulin pen 1 sliding scale dose subcut QAC Discharge Instructions Additional Instructions: Use the Lantus insulin pen if your blood sugars are running above 200 during the day and above 120 in the morning fasting. Follow up with the DEXCOM device with your primary care, who may order more testing for diabetes and give you a oral medication like metformin. Try to eat a diet higher in protein and lower in carbohydrates. Follow up with your consulting senior practice director at [facility] as planned Stand Alone Forms: Portal Information Referrals: Suzan Huber [Primary Care Provider, Medicine] Referral Note: Your pcp will call to schedule your appointment, if you haven't heard from them please call them to schedule Activity:: Activity as Tolerated Equipment/Supplies:: Blood Glucose Monitor Diet:: Carb Counting Discharge Orders Discharge Orders: Discharge Order (Routine); Ordered 05/08/25 Ordered By: Nathan Enriquez DS: Summary Time Spent with Patient providing and/or coordinating discharge services: Greater than 30 minutes Status at Discharge Functional status at discharge: uses cane/walker Overall status at discharge: patient is progressing back to baseline Mental Status: mental status grossly normal Speech and Movement: speech and movement normal Mood: congruent mood Affect: normal affect Quality:SDOH Health Related Social Needs: Health related social needs inadequate housing transpo insecurity house/econ circumstance lonely/isolated Health related social needs details HE expressed a desire for help finding a navigating the available services in [place]. Health related social needs details: HE expressed a desire for help finding a navigating the available services in [place]. Exam Narrative Exam Narrative: General: This is a pleasant man in no distress. jaundiced HEENT: Normocephalic, atraumatic. Sclera icteric. Poor dentition. CV: RRR with systolic murmur Resp: CTAB Abd: soft, NT/ND, mild fluid wave. : edematous scrotum with thickened red skin, some seeping from scratch inferiorly, minimally tender. Neuro: awake, alert, oriented x 4. No tremor/asterixs Psych Mental Status: mental status grossly normal Speech and Movement: speech and movement normal Mood: congruent mood Affect: normal affect DS: Data Vitals/I&O Vitals and I&O: Vital Signs Temperature 37.3 C 05/08/25 11:10 Temperature Source Temporal Artery Scan 05/08/25 11:10 Pulse 73 05/08/25 11:10 Pulse 75 05/07/25 10:00 Respiratory Rate 16 05/08/25 11:10 Respiratory Effort Normal, Non-Labored 05/06/25 00:00 Respiratory Depth Normal 05/06/25 00:00 Respiratory Pattern Tachypnea 05/06/25 00:00 Blood Pressure 108/67 05/08/25 11:10 Blood Pressure Mean 80 05/08/25 11:10 Pulse Oximetry 99 05/08/25 11:10 Oxygen Delivery Method Nasal Cannula 05/08/25 11:10 Oxygen Flow Rate 3 05/08/25 11:10 Pain Level 3 05/08/25 11:10 Comment pt does not have oxygen on 05/07/25 23:07 Intake & Output 05/07/25 05/08/25 05/08/25 23:59 11:59 23:59 Intake Total 1195 / 1655 450 / 450 Output Total 700 / 3325 1500 / 2600 1100 / 2600 Balance 495 / -1670 -1050 / -2150 -1100 / -2150 Weight 112.037 kg Intake: IV Oral 1185 / 1645 450 / 450 Output: Urine 700 / 3325 1500 / 2600 1100 / 2600 Other: Urine Color Light Krupa Yellow Yellow Urine Appearance Clear Clear Clear Urine Odor Normal Stool Size Small Moderate Stool Characteristics Soft Soft Data Completed and Pending Pending Labs at Discharge: 05/06/25 05/06/25 05/06/25 05:55 07:00 16:25 WBC Cancelled 3.34 L RBC Cancelled 2.43 L Hgb Cancelled 7.2 L 7.7 L Hct Cancelled 22.1 L 24.6 L MCV Cancelled 91 MCH Cancelled 29.6 MCHC Cancelled 32.6 RDW Cancelled 20.1 H Plt Count Cancelled 49 L MPV Cancelled 11.1 H PT 25.5 H INR 2.7 H Sodium 133 L Potassium 3.7 Chloride 94 L Carbon Dioxide 35.0 H Anion Gap 4.1 BUN 7 L Creatinine 0.50 L Est GFR (CKD-EPI 2020) 184.04 Glucose 122 H Calcium 8.8 Magnesium 1.6 Total Bilirubin 11.10 H AST 87 H ALT 38 Alkaline Phosphatase 126 H Ammonia 58 H Total Protein 5.6 L Albumin 2.5 L COVID-19 Source Nasopharynx SARS-CoV-2 (PCR) Negative Influenza Type A (PCR) Negative Influenza Type B (PCR) Negative RSV (PCR) Negative 05/07/25 05/08/25 05:40 08:15 WBC 4.52 4.05 L RBC 2.46 L 2.51 L Hgb 7.4 L 7.6 L Hct 22.7 L 23.2 L MCV 92 92 MCH 30.1 30.3 MCHC 32.6 32.8 RDW 20.2 H 20.5 H Plt Count 59 L 63 L MPV 11.1 H 10.4 PT 24.8 H 23.4 H INR 2.6 H 2.5 H Sodium 132 L 132 L Potassium 3.5 3.4 L Chloride 92 L 94 L Carbon Dioxide 32.9 H 32.6 H Anion Gap 6.6 5.7 BUN 10 10 Creatinine 0.62 L 0.61 L Est GFR (CKD-EPI 2020) 143.59 146.30 Glucose 133 H 148 H Calcium 8.6 8.3 Magnesium 1.7 1.6 Total Bilirubin 8.70 H 7.30 H AST 82 H 82 H ALT 38 37 Alkaline Phosphatase 146 H 135 H Ammonia Total Protein 5.6 L 5.8 Albumin 2.5 L 2.4 L COVID-19 Source SARS-CoV-2 (PCR) Influenza Type A (PCR) Influenza Type B (PCR) RSV (PCR) PFSH All Active Problems (Updated 05/06/25 @ 01:12 by Julian Quispe) Hepatic encephalopathy (Acute) Type 2 diabetes mellitus (Chronic) Hyponatremia (Acute) Chronic alcoholism in remission (Chronic) Portal hypertension (Acute) Alcoholic cirrhosis (Chronic) Anemia due to gastrointestinal blood loss (Acute) Hepatic failure due to alcoholism (Acute) Alcohol withdrawal (Acute) Decompensated cirrhosis (Acute) GI (gastrointestinal bleed) (Chronic) Social History Smoking/Tobacco Use Status: Current every day Tobacco Type: e-cigarettes Tobacco: How many years used: 24 Smoking risk assessment performed?: Yes Alcohol Intake: current Alcohol Intake frequency: 3 or more drinks per day Alcohol type: beer and hard liquor Drug use: Current Sobriety Substance use type: marijuana Housing: house Do you feel safe at home: Yes Do you feel safe in your relationship?: Yes Time Spent with Patient Time Spent with Patient: 45-69 minutes Time was spent: preparing to see the patient(eg.review tests), obtaining and/or reviewing separately otained hiistory, ordering medications,tests, procedures, referring, communicating with other health child care director, indepentently interpreting results, counseling the patient and care coordination
--- NOTE | 2025-05-08 13:06 | PDOC.HHF2F_ITS ---
Date of service: 05/08/25 Time of Service: 13:06 Home Health Referral Home Health Orders Clinical synopsis of why skilled professionals are needed: This is a 40-year-old gentleman who was initially seen in the ED at [facility] 04/24/2025 and transferred to [facility] for decompensated stage IV hepatic failure with anasarca, hypotension requiring blood pressure support with norepinephrine and hypoxemia and confusion with hepatic encephalopathy. He has a history of alcohol use disorder and had been drinking, though no heavily, prior to his admission. See the [facility] discharge summary. He was severely fluid overloaded and was transferred back to [facility] on 05/06 for continued IV diuresis with furosemide along with his spironolactone and new metolazone. By 05/08 he was feeling better and his fluid overload was much improved, though he still had significant scrotal edema. He requested discharge. Cannon catheter was removed and he was able to urinate without difficulty. He did have some redness around his scrotum and he was given nystatin. He felt confident in his recovery from alcohol use disorder. He understands the stakes of even moderate alcohol intake with his liver disease. He was told he may resume the acamprosate. Local recovery supports and meetings were discussed. His hemoglobin was stable in the 7s. He was continued on pantoprazole for now. His liver function while here was stable and improved from his initial admission with bilirubin at 7.3 and INR in the mid 2s. smoking cessation was encouraged, nicotene gum was used, which can be continued. His blood sugars were noted to be in the diabetic range while at [facility] and he was started on glargine and aspart insulin. A1c was not felt to be reliable with recent transfusion at [facility]. He has sugars here in the high 100s but his fasting sugar 05/07 was in the 80s so glargine was stopped. He met with Tomas from nutrition/DM education who set him up with a CGM. He was prescribed a Lantus pen to use in case his sugars are above 200 again. Medical diagnosis necessitation home health referral: liver failure Registered Nurse: Check all that apply Instruct on new or changed medication(s)/assess compliance: Ordered Assess for exacerbation of medical condition, instruct patient/caregivers on signs and symptoms to report for early detection: Ordered Physical Therapist: Check all that apply Home safety evaluation and teaching/gait training including stair management (if applicable): Ordered Facility Security Officer: Assist with community resources: Ordered Home Bound Status Requires the aid of supportive device (check all that apply): Cane Describe why leaving home would require a considerable and taxing effort: Requires frequent rest periods and Confusion Encounter Date and Reason: I certify that a FTF encounter for this patient was performed on May 08, 2025 and that such encounter was related to the primary reason the patient r equires home health services. The encounter was conducted in the following manner: * By me as the certifying physician, [employer], [place] or * By an inpatient physician, [employer] or PA during an inpatient stay who communicated findings to me, Certification And Authentication I certify that I composed the above information based on my clinical judgment relating to this patient's medical condition and, if applicable, clinical findings communicated to me by the NPP or inpatient physician who performed the FTF encounter. Name of Provider that will be monitoring home health services: Suzan Huber
--- NOTE | 2025-05-08 13:40 | W.NUTRFU ---
Date of service: 05/08/25 Time of Service: 13:40 Nutrition Note NOTE: Peng with elevated glucose during his inpatient treatment for complications of alcoholic cirrhosis. glucose fingersticks ranging 89-193 this admission. fastings 122-148 x 3 days. Discussed nutrition guidance with Peng: -fluid restriction to ~2L per day (patient with dilutional hyponatremia and being d/c'd on diuretic. Encouraged follow up on fluid needs with PCP soon. -low sodium, high fiber diet (including ~1 tbsp of ground flax worked into foods like yogurt, oats, smoothies etc.) - spacing protein (Suggested ~140g per day with ascites) throughout the day to avoid ammonia spikes and try to include more plant protein Fit CGM on patient and instructed on usage to help monitor glucose (gave him an extra as well for 20 days of monitoring) until he meets with PCP and can see if insurance my cover for continued use. -suggested pt get glucometer at [facility] for a backup to CGM if double checking necessary. -gave insulin instruction sheet from [employer]. - reviewed importance of avoiding processed foods, sodium and avoiding fructose other than in whole fruit. gave sample menu for visuals. has my contact info to reach out for outpatient education and continued support Time Spent in Nutritional Counseling and Treatment: 20min
[2025-05-08 15:27] VITALS: BP 109/56; PULSE 71; RESP 17; TEMP 36.7; O2SAT 99
--- NOTE | 2025-05-08 15:58 | PDOC.CMDIS ---
Date of service: 05/08/25 Time of Service: 15:58 LACE Index Scoring Tool Questions: Length of Stay (in days): 2 Was the patient admitted via the E.D.?: No Comorbidities: Diabetes w/o Complication and Liver or Renal Disease E.D. Visits: 1 Answers: Total Score: 8 Risk of Readmission: Low Risk Care Management Discharge Plan Reason for Hospitalization: hepatic failure due to alcoholism Discharge Plan: Tray was discharged earlier today with new HH services of RN, PT and [facility]. Tray will f/u with his PCP and his team of specialists and continue per his plan of care. He has been given various resources in the area. Tray was transported home by his partner Austen. Patient/Family Education Needs: Review of discharge instructions, acitvity, limitations, and discuss Ask me 3. Services Needed at Discharge: Home Health Care Services (SN, PT and [facility]) SDOH Health Related Social Needs: Health related social needs inadequate housing transpo insecurity house/econ circumstance lonely/isolated Health related social needs details HE expressed a desire for help finding a navigating the available services in [place]. Health related social needs details: HE expressed a desire for help finding a navigating the available services in [place].
== END 2025-05-08 15:59 | disposition home health service (06) | DRG 432 ==
LOC: ICU 08:09 → MS 05-08 06:32 → ICU 05-08 06:32
PROVIDERS: Admitting Provider Family Medicine; PCP Physician Assistant; Responsible Provider Family Medicine; Visit Provider Family Medicine
DX: K70.40 Alcoholic hepatic failure without coma (principal); K22.6 Gastro-esophageal laceration-hemorrhage syndrome; E87.1 Hypo-osmolality and hyponatremia; K76.6 Portal hypertension; F11.20 Opioid dependence, uncomplicated; K92.2 Gastrointestinal hemorrhage, unspecified; I85.10 Secondary esophageal varices without bleeding; K76.82 Hepatic encephalopathy; K70.31 Alcoholic cirrhosis of liver with ascites; D50.0 Iron deficiency anemia secondary to blood loss (chronic); E11.42 Type 2 diabetes mellitus with diabetic polyneuropathy; Z79.4 Long term (current) use of insulin; E66.01 Morbid (severe) obesity due to excess calories; F17.290 Nicotine dependence, other tobacco product, uncomplicated; F12.90 Cannabis use, unspecified, uncomplicated; F10.21 Alcohol dependence, in remission; Z79.899 Other long term (current) drug therapy; Z68.36 Body mass index [BMI] 36.0-36.9, adult
CPT/HCPCS: 00123; 36415; 80053; 85027; 87637; 97161; 97530; 82140; 83735; 85014; 85018; 85610; 99223; 99233; 99239; J1815; J1938; J3490

== ENCOUNTER 2025-05-23 14:22 | Outpatient (CLI) | payer MEDICAID, SELFPAY ==
[2025-05-25 19:03] LABS: PEth 16:0/18:1(POPEth) <10 ng/mL (Cutoff: 10); PEth 16:0/18:2(PLPEth) <10 ng/mL (Cutoff: 10)
== END 2025-05-23 14:23 | disposition home or self-care (01) ==
LOC: LBO 14:23
PROVIDERS: Visit Provider Physician Assistant
DX: K72.90 Hepatic failure, unspecified without coma (principal); K74.60 Unspecified cirrhosis of liver; K70.31 Alcoholic cirrhosis of liver with ascites
CPT/HCPCS: 36415; 80053; 80321; 85025; 85610

== ENCOUNTER 2025-05-24 17:55 | Emergency (ER) | payer MEDICAID, SELFPAY ==
[2025-05-24 17:58] VITALS: BP 95/68; PULSE 71; RESP 16; TEMP 36.6; O2SAT 98
--- NOTE | 2025-05-24 18:09 | W.ED.GENAD ---
Discharge Plan Disposition Patient Disposition: Home Condition: Stable Discharge Details Clinical Impression: Cellulitis of right lower leg Primary Care Provider: Miranda Shaffer ED Provider: Andrez Sifuentes Home Meds and New Rx's Prescriptions: New cephalexin 500 mg capsule 500 mg PO QID 10 Days Qty: 40 0RF Continued lactulose 10 gram/15 mL solution 45 ml PO TID pregabalin [Lyrica] 75 mg capsule 75 mg PO BID cyanocobalamin (vitamin B-12) 1,000 mcg tablet 1,000 mcg PO DAILY nadolol 20 mg tablet 100 mg PO DAILY spironolactone 50 mg tablet 50 mg PO DAILY Rx Instructions: 150mg total daily dose ramelteon [Rozerem] 8 mg tablet 8 mg PO QHS PRN (Reason: sleep) cholecalciferol (vitamin D3) 50 mcg (2,000 unit) capsule 50 mcg PO DAILY thiamine HCl (vitamin B1) 100 mg capsule 100 mg PO DAILY metolazone 2.5 mg Tablet 5 mg PO DAILY Qty: 30 0RF nicotine (polacrilex) 4 mg Gum 4 mg CH Q2H PRN PRNQty: 100 0RF pantoprazole 40 mg Tablet,Delayed Release (Dr/Ec) 40 mg PO DAILY@0730 Qty: 30 0RF nystatin [Nystop] 100,000 unit/gram Powder 1 applic topical TID Qty: 60 1RF insulin glargine [Lantus Solostar U-100 Insulin] 100 unit/mL (3 mL) insulin pen 10 unit subcut QPM Qty: 3 0RF Rx Instructions: use if blood sugars are above 200 and fasting morning sugars are above 120. If fasting morning sugar above 140 for three days, increase dose by 2 units. If fasting morning sugar less than 85, decrease the dose by 2 units acamprosate 333 mg tablet,delayed release (DR/EC) 333 mg PO BID Rx Instructions: administer with mid-day and evening meals buprenorphine-naloxone 8-2 mg film 2 film sublingual DAILY folic acid 1 mg tablet 1 mg PO DAILY furosemide [Lasix] 20 mg tablet 60 mg PO DAILY magnesium oxide 400 mg magnesium capsule 400 mg PO DAILY spironolactone [Aldactone] 100 mg tablet 100 mg PO DAILY Rx Instructions: 150mg total daily dose venlafaxine 75 mg capsule,extended release 24hr 75 mg PO DAILY Discharge Instructions Instructions: Cephalexin, Cellulitis (Skin Infection), Adult ED Additional Instructions: You were seen in the emergency department for the possible early cellulitis of your right nunes, you have some mild swelling and localized warmth and erythema to the area but no signs of neurovascular compromise, your D-dimer is negative indicating no blood clot of the legs, please use the prescribed cephalexin for cellulitis, continue with your at home care and return for any emergent concerns. Stand Alone Forms: Portal Information Referrals: Miranda Shaffer [Primary Care Provider, Medicine] [facility] General Date/Time Provider Initiated Documentation: 05/24/25 18:06. HPI Narrative: 40 year-old male presents to ED today by POV/ambulating with a chief complaint of possible infection of his right nunes, states he is having some edema in warmth to touch to the area as well as worsening redness that has chronic skin changes of both legs with onset noted over this past week with 3 home health visits. Quality described as mild warmth to touch, no radiation to lesions, ulcerations, purulent drainage, endorses some medial thigh pain and ascites, denies fever, nausea, vomiting, respiratory distress. Severity is described as moderate. Palliating factors include nothing specific attempted. Provoking factors include nothing specific. Patient not anticoagulated. Related Data Home Medications ?Medication ?Instructions ?Recorded ?Confirmed acamprosate 333 mg tablet,delayed 333 mg PO BID 04/24/25 05/24/25 release buprenorphine 8 mg-naloxone 2 mg 2 film sublingual DAILY 04/24/25 05/24/25 sublingual film folic acid 1 mg tablet 1 mg PO DAILY 04/24/25 05/24/25 furosemide 20 mg tablet (Lasix) 60 mg PO DAILY 04/24/25 05/24/25 magnesium oxide 400 mg PO DAILY 04/24/25 05/24/25 spironolactone 100 mg tablet 100 mg PO DAILY 04/24/25 05/24/25 (Aldactone) venlafaxine 75 mg capsule,extended 75 mg PO DAILY 04/24/25 05/24/25 release 24 hr cholecalciferol (vitamin D3) 50 50 mcg PO DAILY 05/06/25 05/24/25 mcg (2,000 unit) capsule cyanocobalamin (vitamin B-12) 1,000 mcg PO DAILY 05/06/25 05/24/25 1,000 mcg tablet lactulose 10 gram/15 mL oral 45 ml PO TID 05/06/25 05/24/25 solution nadolol 20 mg tablet 100 mg PO DAILY 05/06/25 05/24/25 pregabalin 75 mg capsule (Lyrica) 75 mg PO BID 05/06/25 05/24/25 ramelteon 8 mg tablet (Rozerem) 8 mg PO QHS PRN sleep 05/06/25 05/24/25 spironolactone 50 mg tablet 50 mg PO DAILY 05/06/25 05/24/25 thiamine HCl (vitamin B1) 100 mg 100 mg PO DAILY 05/06/25 05/24/25 capsule insulin glargine 100 unit/mL (3 10 unit (0.1 mL) subcut QPM #3 mL 05/08/25 05/24/25 mL) subcutaneous pen (Lantus Solostar U-100 Insulin) metolazone 2.5 mg tablet 5 mg (2 x 2.5 mg) PO DAILY #30 tabs 05/08/25 05/24/25 nicotine (polacrilex) 4 mg gum 4 mg CH Q2H PRN PRN #100 ea 05/08/25 05/24/25 nystatin 100,000 unit/gram topical 1 applic topical TID #60 grams 05/08/25 05/24/25 powder (Nystop) pantoprazole 40 mg tablet,delayed 40 mg PO DAILY@0730 #30 tabs 05/08/25 05/24/25 release cephalexin 500 mg capsule 500 mg PO QID 10 days #40 caps 05/24/25 Previous Rx's ?Medication ?Instructions ?Recorded insulin glargine 100 unit/mL (3 10 unit (0.1 mL) subcut QPM #3 mL 05/08/25 mL) subcutaneous pen (Lantus Solostar U-100 Insulin) metolazone 2.5 mg tablet 5 mg (2 x 2.5 mg) PO DAILY #30 tabs 05/08/25 nicotine (polacrilex) 4 mg gum 4 mg CH Q2H PRN PRN #100 ea 05/08/25 nystatin 100,000 unit/gram topical 1 applic topical TID #60 grams 05/08/25 powder (Nystop) pantoprazole 40 mg tablet,delayed 40 mg PO DAILY@0730 #30 tabs 05/08/25 release cephalexin 500 mg capsule 500 mg PO QID 10 days #40 caps 05/24/25 Allergies Allergy/AdvReac Type Severity Reaction Status Date / Time morphine AdvReac Unknown Verified 05/24/25 18:01 General Stated Complaint: Vascular TRINIDAD: 3 Review of Systems All systems reviewed & are unremarkable except as noted in HPI and below Exam Narrative Exam Narrative: GENERAL APPEARANCE: Frail, awake and alert, atraumatic, no acute distress. SKIN: Warm, jaundiced, dry, intact, with chronic changes of likely venous insufficiency to both shins, worse on the right with mild erythema and warmth to touch when compared to the left, no ulcerations or purulent drainage, Homans negative, neurovascularly intact distal, mild medial thigh tenderness on palpation HEAD: Normocephalic, atraumatic, normal hair distribution for gender/age. EYES: Normal conjunctiva, no exudates on lids/lashes. ENT: Nares patent, no circumoral cyanosis, no facial swelling NECK: Supple, trachea midline, painless cervical ROM. LUNGS/CHEST: Lungs CTA bilaterally-no rhonchi/rales/wheeze diffusely, non-labored respirations, normal A/P diameter, symmetrical expansion, no chest wall deformity HEART (CV/PV): Regular rate and rhythm without murmur, no peripheral edema, no JVD. ABDOMEN: Soft, distended, no guarding, no tenderness MSK: Normal ROM, no swelling/deformity to bilateral UEs or LEs, moving all extremities without weakness, no cyanosis, spine midline without tenderness, normal curvature. NEURO: Mental Status AAOx4 - alert to person, place, time, events No facial droop, no forehead involvement. Motor: No focal weakness - strength 5/5 in bilateral UEs and LEs, proximal and distal, symmetric. Sensory: sensation intact to light touch globally. Gait NT PSYCH: euthymic, cooperative, pleasant, appropriate speech Course Vital Signs Vital signs: Vital Signs Temperature 36.6 C 05/24/25 17:58 Pulse 71 05/24/25 17:58 Respiratory Rate 16 05/24/25 17:58 Blood Pressure 95/68 L 05/24/25 17:58 Pulse Oximetry 98 05/24/25 17:58 Temperature 36.6 C 05/24/25 17:58 Pulse 71 05/24/25 17:58 Respiratory Rate 16 05/24/25 17:58 Blood Pressure 95/68 L 05/24/25 17:58 Pulse Oximetry 98 05/24/25 17:58 Pain Level 4 05/24/25 17:58 Medical Decision Making This dictation utilizes [id number] dictation software and may contain unedited grammatical errors. 40 year-old male presents to ED today by POV/ambulating with a chief complaint of possible infection of his right unnes, states he is having some edema in warmth to touch to the area as well as worsening redness that has chronic skin changes of both legs with onset noted over this past week with 3 home health visits. Quality described as mild warmth to touch, no radiation to lesions, ulcerations, purulent drainage, endorses some medial thigh pain and ascites, denies fever, nausea, vomiting, respiratory distress. Severity is described as moderate. Palliating factors include nothing specific attempted. Provoking factors include nothing specific. Patients' medical history: Hepatic failure due to alcoholism, T2DM, portal hypertension, cirrhosis, GI bleeding. Family and social history: No EtOH use currently. Pertinent exam findings / vital signs include jaundice, ascites, no abdominal tenderness or rebound tenderness, some chronic skin changes of both shins worse on the right with some mild erythema and warm to touch, no lesions or ulcerations, no purulent drainage, medial thigh tenderness, Homans negative, no lymphadenitis. Differential / pathologies of concern include cellulitis, chronic changes of venous insufficiency/lymphedema, DVT. Diagnostic studies of: - CBC, BMP, liver panel, D-dimer, lipase. - CBC shows pancytopenia with improving anemia, no left shift - D-dimer negative - Lactate negative - BMP unremarkable - Liver panel shows improving total bilirubin from 7 last lab draw to 6.5, as 4.8 conjugated bilirubin, mildly elevated AST, normal ALT, mildly elevated alk phos - Lipase negative Interventions of: - Rx for cephalexin, the patient may have an early mild cellulitis but reassured no DVT and is neurovascular intact distal to the area of inflammation, counseled follow-up with his normal providers regards to this and return for any severe acute worsening of pain, fever, redness, drainage of pus from the area, other emergent concerns. ED Course/Assessment/Plan: 40-year-old male with end-stage liver failure presents with some chronic skin changes of both lower extremities but states that his right nunes has worsening redness and edema than the left and some warmth to touch, D-dimer is negative do not suspect blood clot and has no gross calf swelling Homans negative and does endorse some mild thigh tenderness in the setting of chronic edema of the lower extremity, his white blood cells are low his hemoglobin is 7.9 but improving from priors, LFTs okay, bilirubin improving from prior values, lipase negative. I did prescribe him cephalexin in the setting of cellulitis with strict return criteria counseled on following up with his PCP for trending of his LFTs. Findings not consistent with sepsis, DVT, worsening LFTs, NV compromise to R leg. Disposition of Cellulitis of Right Lower Leg. Patient verbalized understanding of the plan and return to ED criteria and engaged in shared decision making. Medical Records Medical records reviewed: Yes I reviewed the patient's medical records. Lab Data Lab results reviewed: Yes I reviewed the patient's lab results. Labs: Laboratory Tests Range/Units 05/24/25 18:54 WBC (4.4-10.8) 10^3/uL 3.89 L RBC (4.36-5.78) 10^6/uL 2.68 L Hgb (13.5-17.5) g/dL 7.9 L Hct (40.0-50.0) % 24.9 L MCV (80-95) fL 93 MCH (27.0-33.0) pg 29.5 MCHC (32.0-36.0) % 31.7 L RDW (11.8-14.1) % 19.6 H Plt Count (130-400) 10^3/uL 57 L MPV (8.0-11.0) fL 12.0 H Immature Gran % % 0.3 Neutrophils % % 45.2 Lymphocytes % % 31.4 Monocytes % % 19.3 Eosinophils % % 2.8 Basophils % % 1.0 Nucleated RBC % (0.0-0.3) % 0.0 Absolute Neutrophils (1.2-6.7) 10^3/uL 1.76 Absolute Lymphocytes (1.2-3.4) 10^3/uL 1.22 Absolute Monocytes (0.1-0.8) 10^3/uL 0.75 Absolute Eosinophils (0.0-0.7) 10^3/uL 0.11 Absolute Basophils (0.0-0.2) 10^3/uL 0.04 RBC Morphology See Below Hypochromasia 2+ D-Dimer (<500) ng/mlFEU 234 VBG Lactate (<or=2.0) mmol/L 1.1 Sodium (136-145) mmol/L 139 Potassium (3.5-5.1) mmol/L 3.7 Chloride (98-107) mmol/L 104 Carbon Dioxide (20.0-31.0) mmol/L 27.2 Anion Gap (3-11) mmol/L 7.8 BUN (9-23) mg/dL 9 Creatinine (0.73-1.18) mg/dL 0.64 L Est GFR (CKD-EPI 2020) (mL/min/1.73m2) 138.39 Glucose (74-106) mg/dL 87 Calcium (8.3-10.6) mg/dL 8.1 L Total Bilirubin (0.2-1.2) mg/dL 6.5 H Conjugated Bilirubin (<=0.3) mg/dL 4.8 H AST (<34) U/L 38 H ALT (10-49) U/L 16 Alkaline Phosphatase (46-116) U/L 178 H Total Protein (5.7-8.2) g/dL 6.8 Albumin (3.2-5.0) g/dL 2.4 L Lipase (<53) U/L 35 Quality:SDOH Health Related Social Needs: Health related social needs inadequate housing transpo insecurity house/econ circumstance lonely/isolated Health related social needs details HE expressed a desire for help finding a navigating the available services in [place]. 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
[2025-05-24 19:02] LABS: Abs Immature Grans 0.01 10^3/uL (0.0-0.06); HCT 24.9 % (40.0-50.0); HGB 7.9 g/dL (13.5-17.5); Immature Grans % 0.3 %; MCH 29.5 pg (27.0-33.0); MCHC 31.7 % (32.0-36.0); MCV 93 fL (80-95); MPV 12.0 fL (8.0-11.0); RBC 2.68 10^6/uL (4.36-5.78); RDW 19.6 % (11.8-14.1); RDW-SD 66.4 fL; WBC 3.89 10^3/uL (4.4-10.8)
[2025-05-24 19:10] VITALS: RESP 18
[2025-05-24 19:20] LABS: Hypochromasia 2+; Lipase 35 U/L (<53)
[2025-05-24 19:21] LABS: Platelet Count 57 10^3/uL (130-400)
[2025-05-24 19:22] LABS: ALT 16 U/L (10-49); AST 38 U/L (<34); Albumin 2.4 g/dL (3.2-5.0); Alkaline Phosphatase 178 U/L (46-116); Anion Gap 7.8 mmol/L (3-11); BUN 9 mg/dL (9-23); Bilirubin, Direct 4.8 mg/dL (<=0.3); Bilirubin, Total 6.5 mg/dL (0.2-1.2); CO2 27.2 mmol/L (20.0-31.0); Calcium 8.1 mg/dL (8.3-10.6); Chloride 104 mmol/L (98-107); Glucose 87 mg/dL (74-106); Potassium 3.7 mmol/L (3.5-5.1); Sodium 139 mmol/L (136-145); Total Protein 6.8 g/dL (5.7-8.2)
[2025-05-24 19:30] LABS: D-Dimer 234 ng/mlFEU (<500)
[2025-05-24 19:31] VITALS: PULSE 67; O2SAT 96
[2025-05-24 19:40] VITALS: PULSE 69; RESP 17; O2SAT 96
[2025-05-24 20:00] VITALS: BP 99/53; O2SAT 96
== END 2025-05-24 20:15 | disposition home or self-care (01) ==
PROVIDERS: Emergency Provider Physician Assistant
DX: L03.115 Cellulitis of right lower limb (principal); Z59.82 Transportation insecurity; Z59.89 Other problems related to housing and economic circumstances; Z59.10 Inadequate housing, unspecified; Z60.8 Other problems related to social environment
CPT/HCPCS: 36415; 80048; 80076; 83690; 99283; 83605; 85025; 85379

== ENCOUNTER 2025-05-26 00:31 | Outpatient (CLI) | payer MEDICAID, SELFPAY ==
[2025-05-26 09:02] LABS: Abs Immature Grans 0.01 10^3/uL (0.0-0.06); HCT 26.4 % (40.0-50.0); HGB 8.4 g/dL (13.5-17.5); Immature Grans % 0.3 %; MCH 29.8 pg (27.0-33.0); MCHC 31.8 % (32.0-36.0); MCV 94 fL (80-95); MPV 11.0 fL (8.0-11.0); RBC 2.82 10^6/uL (4.36-5.78); RDW 19.5 % (11.8-14.1); RDW-SD 66.3 fL; WBC 3.61 10^3/uL (4.4-10.8)
[2025-05-26 09:13] LABS: Platelet Count 56 10^3/uL (130-400); RBC Morphology Normal
[2025-05-26 09:15] LABS: ALT 16 U/L (10-49); AST 41 U/L (<34); Albumin 2.5 g/dL (3.2-5.0); Alkaline Phosphatase 192 U/L (46-116); Anion Gap 7.9 mmol/L (3-11); BUN 9 mg/dL (9-23); Bilirubin, Total 7.1 mg/dL (0.2-1.2); CO2 27.1 mmol/L (20.0-31.0); Calcium 8.0 mg/dL (8.3-10.6); Chloride 103 mmol/L (98-107); Glucose 125 mg/dL (74-106); Potassium 3.4 mmol/L (3.5-5.1); Sodium 138 mmol/L (136-145); Total Protein 7.2 g/dL (5.7-8.2)
[2025-05-26 09:30] LABS: INR 2.2 (0.9-1.1); Prothrombin Time 21.2 sec (9.1-11.1)
== END 2025-05-26 00:32 | disposition home or self-care (01) ==
LOC: LBO 00:31
PROVIDERS: Visit Provider Physician Assistant
DX: K72.90 Hepatic failure, unspecified without coma (principal); K74.60 Unspecified cirrhosis of liver
CPT/HCPCS: 36415; 80053; 85025; 85610